=== PATIENT | female | born 1965 | race Asian ===

== ENCOUNTER 2021-04-22 11:14 | Emergency (ER) | payer MEDICAID ==
[2021-04-22 11:25] VITALS: BP 112/65
--- NOTE | 2021-04-22 11:46 | XRAY Report ---
PROCEDURE: Foot 3 View RT INDICATIONS: Trauma TECHNIQUE: 3 views of the foot were acquired. COMPARISON: None. FINDINGS: Bones: No fractures or dislocations. No suspicious bony lesions. Soft tissues: No tibiotalar joint effusion. Achilles tendon appears normal. IMPRESSION: No acute finding. Reviewed by: Nicolas Espinosa MD on 04/22/2021 11:44 AM PDT Approved by: Nicolas Espinosa MD on 04/22/2021 11:44 AM PDT Station ID: [id number]
--- NOTE | 2021-04-22 12:05 | ED Physician Documentation ---
History of Present Illness - Stated complaint Stated Complaint: RT FT INJ - Chief complaint Chief Complaint: Trauma Ext - History obtained from History obtained from: Patient - Additonal information Additional information: Pt comes to the ED c/o R foot pain after dropping a 10-lb weight on it 2 d/a. Mild swelling and bruising. Pt has been ambulating with a limp. No other complaints at this time. Review of Systems Ten Systems: 10 systems reviewed and negative Constitutional: reports: Reviewed and negative Eyes: reports: Reviewed and negative Ears: reports: Reviewed and negative Nose: reports: Reviewed and negative Throat: reports: Reviewed and negative Cardiac: reports: Reviewed and negative Respiratory: reports: Reviewed and negative GI: reports: Reviewed and negative : reports: Reviewed and negative Skin: reports: Reviewed and negative Musculoskeletal: reports: Extremity pain, Pain with weight bearing Neurologic: reports: Reviewed and negative Psychiatric: reports: Reviewed and negative Endocrine: reports: Reviewed and negative Immunocompromised: reports: Reviewed and negative PD PAST MEDICAL HISTORY - Present Medications Home Medications: Ambulatory Orders Medication Instructions Recorded Confirmed Omeprazole Magnesium [Prilosec] 20 mg ORAL DAILY 04/22/21 04/22/21 - Allergies Allergies/Adverse Reactions: Allergies Allergy/AdvReac Type Severity Reaction Status Date / Time No Known Drug Allergies Allergy Verified 04/22/21 11:23 PD ED PE NORMAL - Vitals Vital signs reviewed: Yes - General General: Alert and oriented X 3, No acute distress - HEENT HEENT: PERRL - Neck Neck: Supple, no meningeal sign - Respiratory Respiratory: No respiratory distress - Derm Derm: Warm and dry - Extremities Extremities: No deformity, Other (Mild edema and contusion of R foot dorsum. No deformity. ) - Neuro Neuro: Alert and oriented X 3 - Psych Psych: Normal mood, Normal affect Results - Vitals Vitals: Vital Signs - 24 hr 04/22/21 11:22 Temperature 36 C L Heart Rate 66 Respiratory 16 Rate Blood Pressure 112/65 O2 Saturation 98 Oxygen O2 Source Room air - Rads (name of study) R foot XR Radiology: Final report received, EMP read indepedently, See rad report (neg) PD MEDICAL DECISION MAKING - ED course Complexity details: reviewed results, re-evaluated patient, considered differential, d/w patient ED course: R foot XR negative. We have discussed the usual indications for return. Departure - Departure Disposition: 01 Home, Self Care Clinical Impression: Contusion, foot Qualifiers: Encounter type: initial encounter Laterality: right Qualified Code(s): S90.31XA - Contusion of right foot, initial encounter Condition: Stable Instructions: ED Contusion Foot Discharge Date/Time: 04/22/21 12:13
== END 2021-04-22 12:13 | disposition home or self-care (01) ==
LOC: ED 11:14
DX: S90.31XA Contusion of right foot, initial encounter (principal); W20.8XXA Other cause of strike by thrown, projected or falling object, initial encounter
CPT/HCPCS: 99282; 99283

== ENCOUNTER 2023-03-03 12:37 | Outpatient (CLI) | payer SELFPAY | END 2023-03-03 23:59 | disposition short-term general hospital (02) | LOC: EMS 12:37 | DX: R00.1 Bradycardia, unspecified (principal) | CPT/HCPCS: A0425; A0433 ==

== ENCOUNTER 2023-08-26 15:43 | Emergency (ER) | payer MEDICAID ==
--- NOTE | 2023-08-26 16:55 | XRAY Report ---
PROCEDURE: Shoulder 2+V RT INDICATIONS: R shoulder pain after fall TECHNIQUE: 3 views of the shoulder were acquired. COMPARISON: None. FINDINGS: Bones: No fractures or dislocations. No suspicious bony lesions. Visualized ribs appear intact. Soft tissues: No suspicious soft tissue calcifications. The visualized lungs are within normal limi ts. Partially visualized pacemaker leads. IMPRESSION: No acute bony abnormality. Reviewed by: Luis Young MD on 08/26/2023 4:54 PM PST Approved by: Luis Young MD on 08/26/2023 4:54 PM PST Station ID: [id number]
--- NOTE | 2023-08-26 17:15 | ED Physician Documentation ---
History of Present Illness - Stated complaint Stated Complaint: RT SHOULDER PX - Chief complaint Chief Complaint: General - History obtained from History obtained from: Patient, Family - Additonal information Additional information: The patient comes to the emergency department chief complaint of right shoulder pain and decreased appetite for the last couple of weeks. The patient states she has chronic right shoulder pain and has a "frozen shoulder" for which she is working with physical therapy. She has been on tramadol through her primary care physician for this, but then had a fall at her primary's office last week and states that she feels like she injured the shoulder further. She has had increased pain over the last week and has taken more for tramadol than usual. She states that she ran out last night and when they tried to call the doctor's office this morning to get an appointment, they were told there is no appointment till a week from tomorrow and to come to the ER. The patient states that she did not actually make the appointment for next week because she needed medication sooner. The patient denies any numbness or tingling in her right hand. She states that right now her pain is not too bad but she is worried it will be bad at night. She states that she is not exactly sure why she does not feel like eating or drinking. She states that those symptoms started 2 weeks ago with nausea and she was having dry heaves. She states that because of the nausea, she did not want to try putting anything in her mouth and ever since then, she just has found the idea of oral intake distasteful, even though her nausea has resolved. She states she is lost a lot of weight in the last couple of weeks because of it. No other complaints at this time. 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 Cardiovascular: Pacemaker HEENT: Cataracts - Present Medications Home Medications: Ambulatory Orders Medication Instructions Recorded Confirmed Omeprazole Magnesium [Prilosec] 20 mg ORAL DAILY 04/22/21 08/26/23 traMADol [Ultram] 50 mg PO Q6H PRN #10 tablet 08/26/23 - Allergies Allergies/Adverse Reactions: Allergies Allergy/AdvReac Type Severity Reaction Status Date / Time No Known Drug Allergies Allergy Verified 08/26/23 16:27 - Social History Does the pt smoke?: No Smoking Status: Never smoker Does the pt drink ETOH?: No Does the pt have substance abuse?: No PD ED PE NORMAL - Vitals Vital signs reviewed: Yes - General General: Alert and oriented X 3, No acute distress, Well developed/nourished, Other (Disheveled with poor hygiene.) - HEENT HEENT: Atraumatic, PERRL, EOMI, Moist mucous membranes - Neck Neck: Supple, no meningeal sign - Cardiac Cardiac: RRR, No murmur - Respiratory Respiratory: No respiratory distress, Clear bilaterally - Abdomen Abdomen: Soft, Non tender, Non distended - Derm Derm: Normal color, Warm and dry, No rash - Extremities Extremities: No deformity, Other (Limited range of motion right shoulder, with tenderness over the superior aspect of the shoulder including AC joint and glenoid rim.) - Neuro Neuro: Alert and oriented X 3, 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, Normal speech, Other (Grossly intact) - Psych Psych: Normal mood, Normal affect Results - Vitals Vitals: Vital Signs - 24 hr 08/26/23 08/26/23 16:21 18:27 Temperature 36.4 C L Heart Rate 103 H 90 Respiratory 16 16 Rate Blood Pressure 119/68 114/70 O2 Saturation 97 98 Oxygen O2 Source Room air - Labs Labs: Laboratory Tests 08/26/23 08/26/23 17:22 17:22 WBC 4.7 L RBC 4.60 Hgb 14.1 Hct 43.0 MCV 93.5 MCH 30.7 MCHC 32.8 RDW 13.5 Plt Count 291 MPV 10.1 Neut # (Auto) 2.9 Lymph # (Auto) 1.3 L [place] # (Auto) 0.5 Eos # (Auto) 0.1 Baso # (Auto) 0.0 Absolute Nucleated RBC 0.00 Nucleated RBC % 0.0 Sodium 141 Potassium 3.8 Chloride 101 Carbon Dioxide 31 Anion Gap 9.0 BUN 15 Creatinine 0.7 Estimated GFR (MDRD) 87 L Glucose 94 Calcium 10.4 H Total Bilirubin 0.8 AST 16 ALT 9 L Alkaline Phosphatase 71 Total Protein 6.7 Albumin 4.0 Globulin 2.7 Albumin/Globulin Ratio 1.5 Lipase 16 - Rads (name of study) Right shoulder x-ray series Relevant Findings:: Final report received, See rad report (Negative) PD Medical Decision Making - ED course Complexity details: reviewed results, re-evaluated patient, considered dif ferential, d/w patient, d/w family ED course: I discussed with the patient and her that even if an appointment is more distant than they prefer, they still need to make the next soonest appointment the primary care physician, as the emergency department is not a long-term solution to the patient's chronic issues. I have given the patient a dose of her tramadol here in the emergency department. She will be worked up with basic laboratory studies with regard to her lack of oral intake and general feeling of malaise over the last couple of weeks. Patient does not have any specific symptoms otherwise to indicate acute infectious illness. She is not vomiting and is not having any diarrhea, and there is no reason that she should not be able to hydrate on her own and I have discussed this with her. As such, she will be given oral fluids here in the emergency department and is encouraged to the same at home. Laboratory studies were unremarkable. Shoulder x-ray was normal. I have given the patient a small prescription for tramadol and have advised her to make the next available appointment with her primary doctor. We have discussed the usual indications for return. Departure - Departure Disposition: 01 Home, Self Care Clinical Impression: Decreased appetite Shoulder pain, right Qualifiers: Chronicity: unspecified Qualified Code(s): M25.511 - Pain in right shoulder Condition: Stable Instructions: Frozen Shoulder Prescriptions: traMADol [Ultram] 50 mg PO Q6H PRN #10 tablet PRN Reason: pain Forms: PCP List Discharge Date/Time: 08/26/23 18:30
[2023-08-26] MEDS: traMADol 50 MG TABLET PO STA (17:19)
[2023-08-26 17:26] LABS: BASOPHILS % (AUTO) 0.6 %; EOSINOPHILS # (AUTO) 0.1 10^3/uL (0.0-0.7); EOSINOPHILS % (AUTO) 1.5 %; HGB - HEMOGLOBIN 14.1 g/dL (12.0-16.0); LYMPHOCYTES # (AUTO) 1.3 10^3/uL (1.5-3.5); LYMPHOCYTES % (AUTO) 27.1 %; MEAN CORPUSCULAR HEMOGLOBIN 30.7 pg (27.0-31.0); MEAN CORPUSCULAR HGB CONC 32.8 g/dL (32.0-36.0); MEAN CORPUSCULAR VOLUME 93.5 fL (81.0-99.0); MEAN PLATELET VOLUME 10.1 fL (7.9-10.8); MONOCYTES # (AUTO) 0.5 10^3/uL (0.0-1.0); NEUTROPHILS # (AUTO) 2.9 10^3/uL (1.5-6.6); NEUTROPHILS % (AUTO) 60.8 %; PLT - PLATELET COUNT 291 10^3/uL (130-450); RED CELL DISTRIBUTION WIDTH 13.5 % (12.0-15.0); WHITE BLOOD COUNT 4.7 x10^3/uL (4.8-10.8)
[2023-08-26 17:38] LABS: ALBUMIN/GLOBULIN RATIO 1.5 (1.0-2.2); BILIRUBIN,TOTAL 0.8 mg/dL (0.2-1.0); CALCIUM 10.4 mg/dL (8.5-10.3); CREATININE 0.7 mg/dL (0.6-1.3); POTASSIUM 3.8 mmol/L (3.5-4.5); TOTAL PROTEIN 6.7 g/dL (6.4-8.9)
[2023-08-26 18:31] VITALS: BP 114/70; O2SAT 98
== END 2023-08-26 18:30 | disposition home or self-care (01) ==
LOC: ED 15:43
DX: M25.511 Pain in right shoulder (principal); R63.0 Anorexia; Z95.0 Presence of cardiac pacemaker
CPT/HCPCS: 36415; 73030; 80053; 83690; 85025; 99284; A9270

== ENCOUNTER 2023-09-19 02:53 | Outpatient (CLI) | payer MEDICAID | END 2023-09-19 23:59 | disposition critical access hospital (66) | LOC: EMS 02:53 | DX: R11.2 Nausea with vomiting, unspecified (principal); R10.32 Left lower quadrant pain; K59.00 Constipation, unspecified; R42 Dizziness and giddiness; R55 Syncope and collapse; R05.9 Cough, unspecified | CPT/HCPCS: A0425; A0429; A0999 ==

== ENCOUNTER 2023-09-19 03:30 | Emergency (ER) | payer MEDICAID ==
[2023-09-19 04:14] LABS: BASOPHILS % (AUTO) 0.5 %; EOSINOPHILS % (AUTO) 0.5 %; HCT - HEMATOCRIT 43.5 % (37.0-47.0); HGB - HEMOGLOBIN 14.2 g/dL (12.0-16.0); LYMPHOCYTES % (AUTO) 14.7 %; MEAN CORPUSCULAR HEMOGLOBIN 30.3 pg (27.0-31.0); MEAN CORPUSCULAR HGB CONC 32.6 g/dL (32.0-36.0); MEAN CORPUSCULAR VOLUME 92.8 fL (81.0-99.0); MEAN PLATELET VOLUME 9.7 fL (7.9-10.8); MONOCYTES # (AUTO) 0.6 10^3/uL (0.0-1.0); MONOCYTES % (AUTO) 8.3 %; NEUTROPHILS # (AUTO) 5.1 10^3/uL (1.5-6.6); NEUTROPHILS % (AUTO) 75.7 %; PLT - PLATELET COUNT 203 10^3/uL (130-450); RED BLOOD COUNT 4.69 10^6/uL (4.20-5.40); RED CELL DISTRIBUTION WIDTH 13.1 % (12.0-15.0); WHITE BLOOD COUNT 6.7 x10^3/uL (4.8-10.8)
[2023-09-19 04:34] LABS: ALBUMIN 3.7 g/dL (3.2-5.5); ALBUMIN/GLOBULIN RATIO 1.6 (1.0-2.2); BILIRUBIN,TOTAL 0.8 mg/dL (0.2-1.0); CALCIUM 9.6 mg/dL (8.5-10.3); POTASSIUM 3.6 mmol/L (3.5-4.5)
--- NOTE | 2023-09-19 04:52 | ED Physician Documentation ---
PD HPI NVD - Stated complaint Stated Complaint: N/V, DIZZY, ABD PAIN - Chief complaint Chief Complaint: Abd Pain - History obtained from History obtained from: Patient - Additonal information Additional information: Patient is a 57-year-old female presenting for evaluation of nausea, vomiting and diarrhea starting this morning. Patient states that she has had at least 6 episodes of loose stools as well as multiple episodes of vomiting. Denies blood in emesis or stools. She is only been able to keep down a small amount of juice throughout the day. Denies known sick contacts. Denies recent travel or antibiotic use. Denies fever, chest pain, shortness of air, abdominal pain. Reports feeling lightheaded with standing. Per EMS she was orthostatic and she was given 1 L of IV fluids and rounds along with 4 mg of IV Zofran.Denies dysuria. Review of Systems Constitutional: denies: Fever Cardiac: denies: Chest pain / pressure Respiratory: denies: Dyspnea GI: reports: Nausea, Vomiting, Diarrhea. 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 Cardiovascular: Pacemaker HEENT: Cataracts - Present Medications Home Medications: Ambulatory Orders Medication Instructions Recorded Confirmed Omeprazole Magnesium [Prilosec] 20 mg ORAL DAILY 04/22/21 09/19/23 traMADol [Ultram] 50 mg PO Q6H PRN #10 tablet 08/26/23 09/19/23 Ondansetron Odt [Zofran] 4 mg TL Q6H PRN #10 tablet 09/19/23 - Allergies Allergies/Adverse Reactions: Allergies Allergy/AdvReac Type Severity Reaction Status Date / Time No Known Drug Allergies Allergy Verified 08/26/23 16:27 - Social History Does the pt smoke?: No Smoking Status: Never smoker Does the pt drink ETOH?: No Does the pt have substance abuse?: No PD ED PE NORMAL - General General: Alert and oriented X 3, No acute distress, Well developed/nourished - HEENT HEENT: Atraumatic, Moist mucous membranes, Pharynx benign - Neck Neck: Supple, no meningeal sign - Cardiac Cardiac: RRR, Strong equal pulses - Respiratory Respiratory: No respiratory distress, Clear bilaterally - Abdomen Abdomen: Normal bowel sounds, Soft, Non tender, Non distended - Derm Derm: Warm and dry - Extremities Extremities: No calf tenderness / cord - Neuro Neuro: Alert and oriented X 3, No motor deficit, No sensory deficit, Normal speech Results - Vitals Vitals: Vital Signs - 24 hr 09/19/23 09/19/23 09/19/23 03:35 03:37 05:33 Temperature 36.9 C Heart Rate 101 H 96 88 Heart Rate [ Sitting] Heart Rate [ Standing] Heart Rate [ Supine] Respiratory 18 16 18 Rate Blood Pressure 107/73 101/74 114/76 Blood Pressure [Sitting] Blood Pressure [Standing] Blood Pressure [Supine] O2 Saturation 94 94 95 09/19/23 09/19/23 09/19/23 07:17 07:24 09:26 Temperature 36.8 C 36.7 C Heart Rate 96 97 Heart Rate [ 104 H Sitting] Heart Rate [ 126 H Standing] Heart Rate [ 100 Supine] Respiratory 16 16 Rate Blood Pressure 102/84 H 124/77 Blood Pressure 116/79 [Sitting] Blood Pressure 117/95 H [Standing] Blood Pressure 95/71 [Supine] O2 Saturation 100 96 Oxygen O2 Source Room air - EKG (time done) 0356 EKG releavant findings:: EKG personally interpreted by author of this note. Relevant findings are: Rate 100, Ventricular paced rhythm, no prior for comparison - Labs Labs: Laboratory Tests 09/19/23 09/19/23 04:04 04:04 WBC 6.7 RBC 4.69 Hgb 14.2 Hct 43.5 MCV 92.8 MCH 30.3 MCHC 32.6 RDW 13.1 Plt Count 203 MPV 9.7 Neut # (Auto) 5.1 Lymph # (Auto) 1.0 L [place] # (Auto) 0.6 Eos # (Auto) 0.0 Baso # (Auto) 0.0 Absolute Nucleated RBC 0.00 Nucleated RBC % 0.0 Sodium 143 Potassium 3.6 Chloride 105 Carbon Dioxide 29 Anion Gap 9.0 BUN 9 Creatinine 0.7 Estimated GFR (MDRD) 87 L Glucose 110 H Calcium 9.6 Total Bilirubin 0.8 AST 16 ALT 10 Alkaline Phosphatase 64 Total Protein 6.0 L Albumin 3.7 Globulin 2.3 Albumin/Globulin Ratio 1.6 Lipase 12 PD Medical Decision Making - ED course Complexity details: reviewed results, re-evaluated patient, d/w patient ED course: Pt is a 57 yo F with 1 day of N/V/D and recent ongoing nausea with poor PO intake. Pt orthostatic for EMS. Received 1 L of IV fluids in the field.CBC, chemistries reviewed and without significant findings. Having ongoing nausea, zofran x 2, compazine x 1 with additional 1 L of fluids. Abdominal exam is benign. No dizziness or CP. Pt signed out to Dr. Dueñas at shift change pending re evaluation after compazine and additional fluid bolus. Departure - Departure Disposition: Home, Self Care Clinical Impression: Nausea vomiting and diarrhea, Orthostatic lightheadedness, Volume depletion, gastrointestinal loss Condition: Stable Instructions: ED Diet Vomiting Diarrhea, ED Hypotension Orthostatic Prescriptions: Ondansetron Odt [Zofran] 4 mg TL Q6H PRN #10 tablet PRN Reason: Nausea / Vomiting Comments: You need close follow-up with your primary care provider regarding your ongoing nausea. In the meanwhile I have sent a prescription for antinausea medication To [facility] in [place]. Her labs are otherwise reassuring. If you continue to have diarrhea please have follow-up with your primary care If they can send off stool testing. If you develop any worsening symptoms please return to the emergency department. Please continue to try and stay hydrated. Forms: PCP List Discharge Date/Time: 09/19/23 09:40
[2023-09-19 05:01] LABS: CREATININE 0.7 mg/dL (0.6-1.3)
[2023-09-19] MEDS: ONDANSETRON 4 MG/2 ML VIAL IVP STA (05:30)
[2023-09-19] MEDS: PROCHLORPERAZINE 10 MG/2 ML VIAL IVP STA (06:04)
[2023-09-19] MEDS: SODIUM CHLORIDE 0.9% 1,000 ML IV STA (06:04)
[2023-09-19] MEDS: LACTATED RINGERS 1,000 ML IV STA (08:04)
--- NOTE | 2023-09-19 08:40 | ED Physician Documentation ---
ED Addendum - Addendum Addendum: 09/19/23 08:38 On recheck, the patient is sleepy but able to answer questions well. Presume tired from not sleeping well but also effect of the Compazine. She is able to answer questions appropriately and is oriented. She did take sips of water here in did not have any nausea or emesis. She was given antidiarrheal medication once. Orthostatic vital signs still showed a mild tachycardia with standing up and a drop of blood pressure to 98 systolic. We will give another liter of fluid and reassess. I did talk with her and her family members with her that her stomach will be raw and irritated from the throwing up for couple of days. Small bland foods initially and small amounts of fluid. A prescription for Zofran has been sent already to [facility]. We can try sending home and see how she does and to return if ineffective home therapy. Disposition: Patient discharged home in stable condition. Diagnoses: Nausea vomiting diarrhea 2. Volume depletion 3. Postural lightheadedness
[2023-09-19] MEDS: FAMOTIDINE 20 MG/2 ML VIAL IVP STA (08:53)
[2023-09-19] MEDS: DIPHENOX/ATROPINE 2.5/0.025 MG TABLET PO STA (08:53)
[2023-09-19 09:33] VITALS: BP 124/77; O2SAT 96
== END 2023-09-19 09:40 | disposition home or self-care (01) ==
LOC: EDUNIT# → ED 03:30
DX: E86.9 Volume depletion, unspecified (principal); R42 Dizziness and giddiness; R11.2 Nausea with vomiting, unspecified; R19.7 Diarrhea, unspecified; Z95.0 Presence of cardiac pacemaker
CPT/HCPCS: 36415; 80053; 83690; 85025; 93005; 96361; 96374; 96375; 99284; A9270; J7120

== ENCOUNTER 2023-10-03 12:15 | Outpatient (CLI) | payer MEDICAID | END 2023-10-03 23:59 | disposition critical access hospital (66) | LOC: EMS 12:15 | DX: R11.2 Nausea with vomiting, unspecified (principal); R53.1 Weakness; R10.33 Periumbilical pain | CPT/HCPCS: A0425; A0427; A0999 ==

== ENCOUNTER 2023-10-03 12:57 | Emergency (ER) | payer MEDICAID ==
--- NOTE | 2023-10-03 13:23 | ED Physician Documentation ---
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 At that time no imaging imaging had been complete and she had been very dehydrated and so she was given IV fluids, antinausea meds and had no significant abnormalities to her labs at that time. Today she presents back to the emergency department via EMS for persistent ongoing nausea vomiting diarrhea that she says has been going on over 3 months and today she feels like she is unable to handle the severity of it. She is hypotensive she is ill-appearing and says that she has had an unintentional weight loss of 10 pounds. She endorses and lower abdominal pain and discomfort. No vaginal discharge or vaginal bleeding. She has had no recent international travel. 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 Cardiovascular: Pacemaker HEENT: Cataracts - Present Medications Home Medications: Ambulatory Orders Medication Instructions Recorded Confirmed Omeprazole Magnesium [Prilosec] 20 mg ORAL DAILY 04/22/21 10/03/23 traMADol [Ultram] 50 mg PO Q6H PRN #10 tablet 08/26/23 10/03/23 Ondansetron Odt [Zofran] 4 mg TL Q6H PRN #10 tablet 09/19/23 10/03/23 ONDANSETRON ODT Prepack 2 [ZOFRAN 4 mg TL Q6H PRN #30 tablet 10/03/23 ODT Prepack 2] droNABinol [Marinol] 2.5 mg PO BIDAC #20 cap 10/03/23 - Allergies Allergies/Adverse Reactions: Allergies Allergy/AdvReac Type Severity Reaction Status Date / Time No Known Drug Allergies Allergy Verified 10/03/23 13:27 - Social History Does the pt smoke?: No Smoking Status: Never smoker Does the pt drink ETOH?: No Does the pt have substance abuse?: No PD ED PE NORMAL - Vitals Vital signs reviewed: Yes - General General: Alert and oriented X 3, Other (Ill-appearing appears slightly cachec tic) - HEENT HEENT: Atraumatic, PERRL, Other (Dry mucous membranes) - Neck Neck: Supple, no meningeal sign - Cardiac Cardiac: RRR, No murmur, No gallop - Respiratory Respiratory: No respiratory distress, Clear bilaterally - Abdomen Abdomen: Soft, Other (Hyperactive bowel sounds with tenderness to pelvic region with palpation) - Back Back: No CVA TTP - Derm Derm: Warm and dry, No rash, Other (Pale) Results - Vitals Vitals: Vital Signs - 24 hr 10/03/23 10/03/23 10/03/23 13:18 15:27 16:53 Temperature 36.7 C 36.7 C Heart Rate 94 96 96 Respiratory 18 16 16 Rate Blood Pressure 107/83 H 108/75 108/75 O2 Saturation 98 97 97 Oxygen O2 Source Room air - Labs Labs: Laboratory Tests 10/03/23 10/03/23 10/03/23 13:47 13:47 15:41 WBC 5.4 RBC 4.85 Hgb 14.8 Hct 45.4 MCV 93.6 MCH 30.5 MCHC 32.6 RDW 13.5 Plt Count 260 MPV 10.4 Neut # (Auto) 3.2 Lymph # (Auto) 1.5 [place] # (Auto) 0.6 Eos # (Auto) 0.1 Baso # (Auto) 0.0 Absolute Nucleated RBC 0.00 Nucleated RBC % 0.0 Sodium 142 Potassium 3.3 L Chloride 105 Carbon Dioxide 28 Anion Gap 9.0 BUN 14 Creatinine 0.6 Estimated GFR (MDRD) 103 Glucose 94 Calcium 9.9 Magnesium 1.8 Total Bilirubin 0.8 AST 18 ALT 16 Alkaline Phosphatase 49 Total Protein 6.1 L Albumin 3.8 Globulin 2.3 Albumin/Globulin Ratio 1.7 Lipase 19 Urine Color LIGHT YELLOW Urine Clarity HAZY Urine pH 5.5 Ur Specific [place] <=1.005 Urine Protein NEGATIVE Urine Glucose (UA) NEGATIVE Urine Ketones NEGATIVE Urine Occult Blood SMALL H Urine Nitrite NEGATIVE Urine Bilirubin NEGATIVE Urine Urobilinogen 1 (NORMAL) Ur Leukocyte Esterase NEGATIVE Urine RBC 6-10 H Urine WBC 6-10 H Ur Squamous Epith Cells MOD Squamous H Urine Bacteria Rare Ur Microscopic Review INDICATED Urine Culture Comments NOT INDICATED - Rads (name of study) CT abdomen pelvis with Relevant Findings:: Final report received, EMP independent interpretation of test, Other (No acute abnormalities visualized in abdomen or pelvis) PD Medical Decision Making - ED course ED course: 57-year-old female presents emergency department for generalized fatigue, nausea vomiting diarrhea. Patient said the last episode of diarrhea she had was sometime last evening and she has had no nausea or vomiting in the last 48 hours. CBC does not show any abnormalities, CMP shows very mild hypokalemia, K3.3 and slightly suppressed protein at 6.1 with an unremarkable urinalysis. CT scan also is unremarkable there is no abnormalities on CT abdomen pelvis without con. Patient says her main concern is that she has an appetite but she is just very hungry and she just does not feel like she wants to eat when she looks at the food. I informed the patient that she had no acute abnormalities or findings and she became quite tearful. I offered her the possibility that this could be an advancement in her myotonic dystrophy and she said that she did agree and that she has not seen a neurologist for some time about this. She says that she has a follow-up appointment with her primary care provider either October 11 or . I informed her that she needs to discuss these findings with her primary care provider have a referral to a possible steam oven operator or dietitian as well as GI and possibly neurology. Patient says that she agrees and will prioritize making this appointment. Departure - Departure Disposition: Home, Self Care Clinical Impression: Decrease in appetite, Food aversion, Myotonic dystrophy Nausea & vomiting Qualifiers: Vomiting type: unspecified Qualified Code(s): R11.2 - Nausea with vomiting, unspecified Instructions: ED Nausea Vomiting Prescriptions: droNABinol [Marinol] 2.5 mg PO BIDAC #20 cap ONDANSETRON ODT Prepack 2 [ZOFRAN ODT Prepack 2] 4 mg TL Q6H PRN #30 tablet PRN Reason: Nausea / Vomiting Comments: Thank you for trusting us with your care. We have completed a thorough investigation into what is causing your nausea vomiting and diarrhea and we are unable to find anything conclusive at this time. Your labs are quite reassuring your potassium was very mildly suppressed we have given you potassium here in the emergency department to help with this. I suspect that this could possibly related to an advancement in your myotonic dystrophy but I really want you to follow-up with your primary care provider for more specialist referrals and follow-up such as referral to GI, neurology or both as well as a dietitian to help find creative ways to increase caloric intake. I strongly encourage you to capitalize on the calories that you are taking and such as protein drinks, starchy foods like mashed potatoes, or smoothies. I have also sent a prescription of Zofran for your mild nausea to [facility] in [place] and I also started you on a medication to help with your appetite called Marinol. Keep in mind this can make you quite drowsy so take 1 dose and if you are noticing that is causing too much drowsiness and fatigue I would caution you before taking a second 1. You will take this once in the morning once in the evening to see if this helps with your appetite and your food aversion. Please come back to the emergency department for starting develop worsening weakness, nausea vomiting diarrhea that is not controlled at home with the medications I prescribed you or any other worsening concerning symptoms. Forms: PCP List Discharge Date/Time: 10/03/23 17:07
[2023-10-03 13:51] LABS: BASOPHILS % (AUTO) 0.7 %; EOSINOPHILS # (AUTO) 0.1 10^3/uL (0.0-0.7); EOSINOPHILS % (AUTO) 0.9 %; HCT - HEMATOCRIT 45.4 % (37.0-47.0); HGB - HEMOGLOBIN 14.8 g/dL (12.0-16.0); LYMPHOCYTES # (AUTO) 1.5 10^3/uL (1.5-3.5); LYMPHOCYTES % (AUTO) 26.8 %; MEAN CORPUSCULAR HEMOGLOBIN 30.5 pg (27.0-31.0); MEAN CORPUSCULAR HGB CONC 32.6 g/dL (32.0-36.0); MEAN CORPUSCULAR VOLUME 93.6 fL (81.0-99.0); MEAN PLATELET VOLUME 10.4 fL (7.9-10.8); MONOCYTES # (AUTO) 0.6 10^3/uL (0.0-1.0); MONOCYTES % (AUTO) 11.3 %; NEUTROPHILS # (AUTO) 3.2 10^3/uL (1.5-6.6); NEUTROPHILS % (AUTO) 59.9 %; PLT - PLATELET COUNT 260 10^3/uL (130-450); RED BLOOD COUNT 4.85 10^6/uL (4.20-5.40); RED CELL DISTRIBUTION WIDTH 13.5 % (12.0-15.0); WHITE BLOOD COUNT 5.4 x10^3/uL (4.8-10.8)
[2023-10-03 14:03] LABS: MAGNESIUM 1.8 mg/dL (1.7-2.3)
[2023-10-03] MEDS: SODIUM CHLORIDE 0.9% 1,000 ML IV ONE (14:08)
[2023-10-03 14:10] LABS: ALBUMIN 3.8 g/dL (3.2-5.5); ALBUMIN/GLOBULIN RATIO 1.7 (1.0-2.2); BILIRUBIN,TOTAL 0.8 mg/dL (0.2-1.0); CALCIUM 9.9 mg/dL (8.5-10.3); CREATININE 0.6 mg/dL (0.6-1.3); POTASSIUM 3.3 mmol/L (3.5-4.5); TOTAL PROTEIN 6.1 g/dL (6.4-8.9)
[2023-10-03] MEDS ORDERED: iohexoL-300 100 ML VIAL ONE (14:29)
[2023-10-03] MEDS: ONDANSETRON 4 MG/2 ML VIAL IVP STA (14:36)
[2023-10-03] MEDS: POTASSIUM CHLORIDE 20 MEQ/15 ML UDC PO STA (15:10)
--- NOTE | 2023-10-03 15:46 | CT Report ---
PROCEDURE: Abdomen/Pelvis W INDICATIONS: lower abdominal pain, N/V/D CONTRAST: 100ml omni 300 TECHNIQUE: After the administration of intravenous contrast, a CT scan of the abdomen and pelvis was performed. Images were recorded and evaluated at appropriate window settings. Reformats: coronal and sagittal. F or radiation dose reduction, the following was used: automated exposure control, adjustment of mA and /or kV according to patient size. COMPARISON: None. FINDINGS: Image quality: Diagnostic. Lower chest: Unremarkable. Liver: No solid mass. Gallbladder and biliary tree: No radiopaque stones or wall thickening. No biliary dilation. Spleen: No splenomegaly. Pancreas: No pancreatic ductal dilation. Adrenals: No adrenal nodule. Kidneys and ureters: No hydronephrosis. No renal cystic lesion which requires follow up. No solid mas s. Stomach, bowel and peritoneum: No bowel distension. No pathologic free fluid. Normal caliber appendix in the right lower quadrant Lymph nodes: No central or retroperitoneal adenopathy. Vessels: No infrarenal aortic aneurysm. PELVIS Reproductive organs: Unremarkable. Bladder: No abnormal wall thickening, accounting for underdistention. Pelvic lymph nodes: No pelvic adenopathy by size criteria. Bones: No acute or suspicious osseous abnormality. No compression fractures. Other: No significant ventral or inguinal hernia. IMPRESSION: No acute abdominal pelvic process. Reviewed by: Romina Isaacs MD on 10/03/2023 2:45 PM [email or web address] Approved by: Romina Isaacs MD on 10/03/2023 2:45 PM AKDT Station ID: [id number]
[2023-10-03 15:54] LABS: BILIRUBIN,URINE NEGATIVE (NEGATIVE); GLUCOSE, URINE (UA) NEGATIVE (NEGATIVE); KETONES,URINE (UA) NEGATIVE (NEGATIVE); LEUKOCYTE ESTERASE, URINE NEGATIVE (NEGATIVE); NITRITE,URINE NEGATIVE (NEGATIVE); OCCULT BLOOD,URINE SMALL (NEGATIVE); PH,URINE 5.5 PH (5.0-7.5); PROTEIN,URINE NEGATIVE (NEGATIVE); UROBILINOGEN,URINE 1 (NORMAL) E.U./dL (NORMAL)
[2023-10-03 16:05] LABS: CLARITY,URINE HAZY (CLEAR)
[2023-10-03 16:06] LABS: BACTERIA,URINE Rare /HPF (None Seen); SQUAMOUS EPITHELIAL CELL,UR MOD Squamous (<= Few)
[2023-10-03] MEDS ORDERED: droNABinol 2.5 MG CAPSULE PO STA (16:21)
[2023-10-03 16:23] VITALS: BP 108/75; O2SAT 97
== END 2023-10-03 17:07 | disposition home or self-care (01) ==
LOC: EDUNIT# → ED 12:57
DX: R11.2 Nausea with vomiting, unspecified (principal); R19.7 Diarrhea, unspecified; F50.82 Avoidant/restrictive food intake disorder; Z68.20 Body mass index [BMI] 20.0-20.9, adult; E87.6 Hypokalemia; G71.11 Myotonic muscular dystrophy
CPT/HCPCS: 36415; 74177; 80053; 81001; 83690; 83735; 85025; 96374; 99284; A9270; Q0167; Q9967; 81003; 87086; 87507

== ENCOUNTER 2023-10-16 18:05 | Outpatient (CLI) | payer MEDICAID | END 2023-10-16 23:59 | disposition EMS.NT | LOC: EMS 18:05 | DX: R11.0 Nausea (principal); R19.7 Diarrhea, unspecified ==

== ENCOUNTER 2023-10-20 17:28 | Outpatient (CLI) | payer MEDICAID | END 2023-10-20 23:59 | disposition EMS.NT | LOC: EMS 17:28 | DX: K59.00 Constipation, unspecified (principal); R10.30 Lower abdominal pain, unspecified ==

== ENCOUNTER 2023-10-20 18:35 | Emergency (ER) | payer MEDICAID ==
[2023-10-20 19:08] VITALS: O2SAT 95
--- NOTE | 2023-10-20 19:28 | ED Physician Documentation ---
PD HPI ABD PAIN - Stated complaint Stated Complaint: ABD PX/GI - Chief complaint Chief Complaint: Abd Pain - History obtained from History obtained from: Patient, Family - History of Present Illness Timing - onset: How many days ago (7) Timing - duration: Days (7) Timing - details: Abrupt onset, Still present Quality: Cramping, Fullness/distended, Pain Location: Periumbilical, Suprapubic Improved by: Laying still Worsened by: Eating, Moving, Position, Palpation Associated symptoms: Constipation Similar symptoms before: Has not had sx before Recently seen: Clinic, Emergency Dept - Additional information Additional information: Dori Damon presents to the emergency department today with some lower abdominal pain and a feeling of constipation. 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 She reports a 3-month history of weight loss and anorexia. She has been in to see us here in the emergency department in September and the issue of her appetite was addressed. CT scan of the abdomen pelvis was obtained at that time without specific finding.She was prescribed megestrol and this did not seem to help with her appetite. She has subsequently been in to see her primary care doctor, Dr. Townsend in [place]. She went in not feeling well and urinary tract infection was discovered. The patient indicates she has been having symptoms. She was placed on an antibiotic she is uncertain what antibiotic it was and she has been taking it 3 times per day. She has not had no change. She reports that she has been sleeping poorly she has no appetite she has a 20 pound weight loss and she initially tells me she does not feel depressed in any way does not have anything to be depressed about. When I questioned her further about specific things like going out to do things that you are considered fine she told me that she does not feel felt well enough to go see her son perform at a track meet. Review of Systems Constitutional: denies: Fever Eyes: denies: Decreased vision Ears: denies: Ear pain Nose: denies: Rhinorrhea / runny nose, Congestion Throat: denies: Sore throat Cardiac: denies: Chest pain / pressure, Palpitations Respiratory: denies: Dyspnea, Cough, Wheezing GI: reports: Abdominal Pain, Constipation. 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 Cardiovascular: Pacemaker HEENT: Cataracts - Present Medications Home Medications: Ambulatory Orders Medication Instructions Recorded Confirmed Omeprazole Magnesium [Prilosec] 20 mg ORAL DAILY 04/22/21 10/03/23 traMADol [Ultram] 50 mg PO Q6H PRN #10 tablet 08/26/23 10/03/23 Ondansetron Odt [Zofran] 4 mg TL Q6H PRN #10 tablet 09/19/23 10/03/23 ONDANSETRON ODT Prepack 2 [ZOFRAN 4 mg TL Q6H PRN #30 tablet 10/03/23 ODT Prepack 2] droNABinol [Marinol] 2.5 mg PO BIDAC #20 cap 10/03/23 Ciprofloxacin HCl [Cipro] 500 mg PO BID #14 tablet 10/20/23 - Allergies Allergies/Adverse Reactions: Allergies Allergy/AdvReac Type Severity Reaction Status Date / Time No Known Drug Allergies Allergy Verified 10/20/23 18:38 - Social History Does the pt smoke?: No Smoking Status: Never smoker Does the pt drink ETOH?: No Does the pt have substance abuse?: No - POLST Patient has POLST: No PD ED PE NORMAL - Vitals Vital signs reviewed: Yes (normal ) - General General: Alert and oriented X 3, No acute distress, Well developed/nourished - HEENT HEENT: Atraumatic, PERRL, EOMI, Other (dry mucous membranes ) - Neck Neck: Supple, no meningeal sign, No bony TTP - Cardiac Cardiac: RRR, No murmur - Respiratory Respiratory: No respiratory distress, Clear bilaterally - Abdomen Abdomen: Normal bowel sounds, Soft, Non distended, No organomegaly, Other (mild suprapubic tenderess. No garding rebound or referred tenderness. 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, No motor deficit, No sensory deficit, Normal speech Eye Opening: Spontaneous Motor: Obeys Commands Verbal: Oriented GCS Score: 15 - Psych Psych: Normal mood, Normal affect Results - Vitals Vitals: Vital Signs - 24 hr 10/20/23 10/20/23 10/20/23 18:38 19:03 23:46 Temperature 36.8 C 35.9 C L Heart Rate 100 85 84 Respiratory 16 20 20 Rate Blood Pressure 110/73 98/69 130/85 H O2 Saturation 100 95 95 Oxygen O2 Source Room air - Labs Labs: Laboratory Tests 10/20/23 10/20/23 10/20/23 20:00 20:00 20:30 WBC 4.2 L RBC 4.67 Hgb 14.1 Hct 44.0 MCV 94.2 MCH 30.2 MCHC 32.0 RDW 13.7 Plt Count 235 MPV 9.6 Neut # (Auto) 2.4 Lymph # (Auto) 1.4 L [place] # (Auto) 0.4 Eos # (Auto) 0.0 Baso # (Auto) 0.0 Absolute Nucleated RBC 0.00 Nucleated RBC % 0.0 Sodium 140 Potassium 4.2 Chloride 106 Carbon Dioxide 28 Anion Gap 6.0 BUN 8 Creatinine 0.6 Estimated GFR (MDRD) 103 Glucose 98 Calcium 10.3 Total Bilirubin 1.0 AST 16 ALT 11 Alkaline Phosphatase 45 Total Protein 5.8 L Albumin 3.8 Globulin 2.0 L Albumin/Globulin Ratio 1.9 Lipase 11 Urine Color YELLOW Urine Clarity CLEAR Urine pH 6.0 Ur Specific [place] 1.020 Urine Protein NEGATIVE Urine Glucose (UA) NEGATIVE Urine Ketones NEGATIVE Urine Occult Blood NEGATIVE Urine Nitrite NEGATIVE Urine Bilirubin NEGATIVE Urine Urobilinogen 0.2 (NORMAL) Ur Leukocyte Esterase MODERATE H Urine RBC 0-5 Urine WBC 11-25 H Ur Squamous Epith Cells FEW Squamous Urine Bacteria Few Urine Mucus Few Strands Ur Microscopic Review INDICATED Urine Culture Comments INDICATED - Rads (name of study) CT ab/pel with Relevant Findings:: Prelim report reviewed (Impression no acute abdominal pelvis process.), EMP independent interpretation of test PD Medical Decision Making - ED course Complexity details: reviewed old records, reviewed results, re-evaluated patient, considered differential, d/w patient, d/w family Reviewed Lab Results: We reviewed a complete blood count showing a white blood cell count depressed at 4.2 similar to priors her hemoglobin hematocrit and platelets were normal her indices were normal chemistry showed normal electrolytes normal kidney and liver function urinalysis showed moderate leukocyte Estrace 11-25 white blood cells per high-powered field a few bacteria it did make the grade for culture.These l aboratory studies are relatively benign and do not contribute to a specific diagnosis with the exception of the urinalysis which demonstrates evidence of urinary tract infection.The patient is symptomatic. ED course: 58-year-old Dori Marte presents to the emergency department with concerns of constipation. I evaluated the patient at the bedside I did not find her abdomen to be distended or specifically tender anywhere with the exception of the suprapubic area which is mildly tender. This was correlated with the positive urinalysis is likely cause of her tenderness.The patient's 20 pound weight loss was a significant concern and CT of the abdomen pelvis was obtained. The patient had complained of constipation and the CT scan demonstrated almost no stool throughout the entire colon after 7 days without a bowel movement. My interpretation of this finding was the patient is not eating. This is confirmed by history. I turned my attention to her history and when I queried symptoms of depression she did not feel that she was in any way depressed. But each of the vegetative symptoms were positive. She has poor sleep, lack of appetite and anhedonia. Her affect does not tell depression it seems normal. I have encouraged her to follow-up with her primary care doctor to consider treatment of depression as this may be what improves her appetite. I also considered the possibility of progression of her myotonic dystrophy and I am not versed in this entity and have referred her to her primary for referral to specialist. In the emergency department we did do symptomatic treatment she appeared significantly dehydrated she was administered intravenous saline she was given a gram of Rocephin intravenously and we will switch her antibiotic to Cipro.At the conclusion of treatment the patient felt improved and wanted to go home. Departure - Departure Disposition: 01 Home, Self Care Clinical Impression: Anorexia, Myotonic dystrophy, Dehydration UTI (urinary tract infection) Qualifiers: Urinary tract infection type: acute cystitis Hematuria presence: without hematuria Qualified Code(s): N30.00 - Acute cystitis without hematuria Depression Qualifiers: Depression Type: other depression Qualified Code(s): F32.89 - Other specified depressive episodes Condition: Stable Instructions: ED Dehydration, ED Depression, ED UTI Cystitis Female Follow-Up: Aylin Townsend MD [Primary Care Provider] - Prescriptions: Ciprofloxacin HCl [Cipro] 500 mg PO BID #14 tablet Comments: Dori, today we did not find any evidence of constipation on your CAT scan. It looks like the absence of stools related to absence of food products in the digestive tract. As we discussed this may be related to depression as you are having a problem with sleep, appetite and anhedonia or the lack of desire to do fun things. Talk to your primary care doctor about a trial of antidepressant. Alternatively the lack of appetite may be primarily related to your underlying myotonic dystrophy, and a follow-up with neurologist may be indicated. Today we found that despite the treatment for several days there still appears to be urinary tract infection. This likely means the organism in the urine is resistant to the antibiotic you are on and we are switching your antibiotic. Today we gave you a dose of Rocephin and we will change her antibiotic to Cipro. I have E scribed this to the [facility] in [place]. Forms: PCP List Discharge Date/Time: 10/20/23 23:46
[2023-10-20] MEDS ORDERED: iohexoL-300 100 ML VIAL ONE (20:06)
[2023-10-20 20:31] LABS: BASOPHILS % (AUTO) 0.7 %; EOSINOPHILS % (AUTO) 0.5 %; HGB - HEMOGLOBIN 14.1 g/dL (12.0-16.0); LYMPHOCYTES # (AUTO) 1.4 10^3/uL (1.5-3.5); LYMPHOCYTES % (AUTO) 33.8 %; MEAN CORPUSCULAR HEMOGLOBIN 30.2 pg (27.0-31.0); MEAN CORPUSCULAR VOLUME 94.2 fL (81.0-99.0); MEAN PLATELET VOLUME 9.6 fL (7.9-10.8); MONOCYTES # (AUTO) 0.4 10^3/uL (0.0-1.0); MONOCYTES % (AUTO) 9.2 %; NEUTROPHILS # (AUTO) 2.4 10^3/uL (1.5-6.6); NEUTROPHILS % (AUTO) 55.6 %; PLT - PLATELET COUNT 235 10^3/uL (130-450); RED BLOOD COUNT 4.67 10^6/uL (4.20-5.40); RED CELL DISTRIBUTION WIDTH 13.7 % (12.0-15.0); WHITE BLOOD COUNT 4.2 x10^3/uL (4.8-10.8)
[2023-10-20 20:51] LABS: ALBUMIN 3.8 g/dL (3.2-5.5); ALBUMIN/GLOBULIN RATIO 1.9 (1.0-2.2); CALCIUM 10.3 mg/dL (8.5-10.3); CREATININE 0.6 mg/dL (0.6-1.3); POTASSIUM 4.2 mmol/L (3.5-4.5); TOTAL PROTEIN 5.8 g/dL (6.4-8.9)
[2023-10-20 21:14] LABS: BILIRUBIN,URINE NEGATIVE (NEGATIVE); GLUCOSE, URINE (UA) NEGATIVE (NEGATIVE); KETONES,URINE (UA) NEGATIVE (NEGATIVE); LEUKOCYTE ESTERASE, URINE MODERATE (NEGATIVE); NITRITE,URINE NEGATIVE (NEGATIVE); OCCULT BLOOD,URINE NEGATIVE (NEGATIVE); PROTEIN,URINE NEGATIVE (NEGATIVE); UROBILINOGEN,URINE 0.2 (NORMAL) E.U./dL (NORMAL)
[2023-10-20 21:16] LABS: CLARITY,URINE CLEAR (CLEAR)
[2023-10-20] MEDS: iohexoL-300 100 ML VIAL IVP ONE (21:29)
[2023-10-20 21:30] LABS: BACTERIA,URINE Few /HPF (None Seen); MUCUS,URINE Few Strands; RBC,URINE 0-5 /HPF (0-5); SQUAMOUS EPITHELIAL CELL,UR FEW Squamous (<= Few)
[2023-10-20] MEDS ORDERED: cefTRIAXone 1 GM VIAL ONE (21:57)
[2023-10-20] MEDS: cefTRIAXone 1 GM in SODIUM CHLORIDE 0.9% MINIBAG 100 ML IV STA (22:03)
[2023-10-20] MEDS: KETOROLAC 30 MG/ML VIAL IVP STA (22:04)
[2023-10-20] MEDS: SODIUM CHLORIDE 0.9% 1,000 ML IV STA (22:04)
--- NOTE | 2023-10-20 22:59 | CT Report ---
PROCEDURE: Abdomen/Pelvis W INDICATIONS: abdominal pain constipation 7d weight loss CONTRAST: Omni 300, 100mls TECHNIQUE: After the administration of intravenous contrast, a CT scan of the abdomen and pelvis was performed. Images were recorded and evaluated at appropriate window settings. Reformats: coronal and sagittal. F or radiation dose reduction, the following was used: automated exposure control, adjustment of mA and /or kV according to patient size. COMPARISON: CT abdomen pelvis 10/03/2023. FINDINGS: Image quality: Diagnostic. Lower chest: Unremarkable. Liver: No solid mass. Gallbladder and biliary tree: No radiopaque stones or wall thickening. No biliary dilation. Spleen: No splenomegaly. Pancreas: No pancreatic ductal dilation. Adrenals: No adrenal nodule. Kidneys and ureters: No hydronephrosis. No renal cystic lesion which requires follow up. No solid mas s. Stomach, bowel and peritoneum: No bowel distension. No pathologic free fluid. No small bowel obstruct ion. Normal caliber appendix in the right lower quadrant. Lymph nodes: No central or retroperitoneal adenopathy. Vessels: No infrarenal aortic aneurysm. PELVIS Reproductive organs: Unremarkable. Bladder: No abnormal wall thickening, accounting for underdistention. Pelvic lymph nodes: No pelvic adenopathy by size criteria. Bones: No aggressive osseous abnormality. Other: No significant ventral or inguinal hernia. IMPRESSION: No acute abdominopelvic process. Reviewed by: Romina Isaacs MD, PhD on 10/20/2023 10:58 PM PDT Approved by: Romina Isaacs MD, PhD on 10/20/2023 10:58 PM PDT Station ID: [id number]
[2023-10-20 23:52] VITALS: BP 130/85
== END 2023-10-20 23:46 | disposition home or self-care (01) ==
LOC: ED 18:35
DX: N30.00 Acute cystitis without hematuria (principal); G71.11 Myotonic muscular dystrophy; R63.0 Anorexia; E86.0 Dehydration; F32.89 Other specified depressive episodes; Z95.0 Presence of cardiac pacemaker
CPT/HCPCS: 36415; 74177; 80053; 81001; 83690; 85025; 87086; 96365; 96375; 99284; Q9967; 81003

== ENCOUNTER 2023-12-04 16:44 | Outpatient (CLI) | payer MEDICAID | END 2023-12-04 23:59 | disposition short-term general hospital (02) | LOC: EMS 16:44 | DX: R10.13 Epigastric pain (principal); Z93.1 Gastrostomy status | CPT/HCPCS: A0425; A0427; A0999 ==

== ENCOUNTER 2023-12-13 17:47 | Emergency (ER) | payer MEDICAID ==
--- NOTE | 2023-12-13 18:12 | ED Physician Documentation ---
PD HPI FEMALE - Stated complaint Stated Complaint: - Chief complaint Chief Complaint: Abd Pain - History obtained from History obtained from: Patient, Family - Additional information Additional information: 2 days of burning dysuria and frequency. She also has a raw on her backside from diarrhea. Recent feeding tube placement for neuromuscular weakness. No fevers. 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 Cardiovascular: Pacemaker HEENT: Cataracts - Present Medications Home Medications: Ambulatory Orders Medication Instructions Recorded Confirmed Omeprazole Magnesium [Prilosec] 20 mg ORAL DAILY 04/22/21 10/03/23 traMADol [Ultram] 50 mg PO Q6H PRN #10 tablet 08/26/23 10/03/23 Ondansetron Odt [Zofran] 4 mg TL Q6H PRN #10 tablet 09/19/23 10/03/23 ONDANSETRON ODT Prepack 2 [ZOFRAN 4 mg TL Q6H PRN #30 tablet 10/03/23 ODT Prepack 2] droNABinol [Marinol] 2.5 mg PO BIDAC #20 cap 10/03/23 Ciprofloxacin HCl [Cipro] 500 mg PO BID #14 tablet 10/20/23 Nitrofurantoin [Macrobid] 1 cap PO BID #10 cap 12/13/23 - Allergies Allergies/Adverse Reactions: Allergies Allergy/AdvReac Type Severity Reaction Status Date / Time No Known Drug Allergies Allergy Verified 12/13/23 18:23 - Social History Does the pt smoke?: No Smoking Status: Never smoker Does the pt drink ETOH?: No Does the pt have substance abuse?: No - POLST Patient has POLST: No PD ED PE NORMAL - Vitals Vital signs reviewed: Yes - General General: Alert and oriented X 3 - Abdomen Abdomen: Soft, Non tender - Back Back: No CVA TTP Results - Vitals Vitals: Vital Signs - 24 hr 12/13/23 12/13/23 17:49 19:35 Temperature 35.7 C L Heart Rate 106 H 98 Respiratory 18 15 Rate Blood Pressure 115/59 L 101/60 O2 Saturation 95 100 Oxygen O2 Source Room air - Labs Labs: Laboratory Tests 12/13/23 12/13/23 12/13/23 18:08 18:08 18:09 WBC 6.3 RBC 4.55 Hgb 13.9 Hct 42.0 MCV 92.3 MCH 30.5 MCHC 33.1 RDW 15.9 H Plt Count 522 H MPV 9.3 Neut # (Auto) 4.6 Lymph # (Auto) 1.1 L [place] # (Auto) 0.6 Eos # (Auto) 0.0 Baso # (Auto) 0.0 Absolute Nucleated RBC 0.00 Nucleated RBC % 0.0 Sodium 141 Potassium 4.0 Chloride 101 Carbon Dioxide 32 Anion Gap 8.0 BUN 15 Creatinine 0.7 Estimated GFR (MDRD) 86 L Glucose 130 H Calcium 10.5 H Total Bilirubin 0.7 AST 29 ALT 20 Alkaline Phosphatase 80 Total Protein 6.8 Albumin 4.0 Globulin 2.8 Albumin/Globulin Ratio 1.4 Lipase 42 Urine Color LIGHT YELLOW Urine Clarity HAZY Urine pH 6.5 Ur Specific [place] 1.015 Urine Protein NEGATIVE Urine Glucose (UA) NEGATIVE Urine Ketones NEGATIVE Urine Occult Blood NEGATIVE Urine Nitrite NEGATIVE Urine Bilirubin NEGATIVE Urine Urobilinogen 0.2 (NORMAL) Ur Leukocyte Esterase SMALL H Urine RBC 0-5 Urine WBC 6-10 H Ur Squamous Epith Cells MOD Squamous H Amorphous Sediment Few Urine Bacteria Many H Ur Microscopic Review INDICATED Urine Culture Comments NOT INDICATED PD Medical Decision Making - ED course ED course: She presents with symptoms of cystitis. She does have bacteriuria but no white count and unremarkable CBC and CMP only notable for mild hyperglycemia and hypercalcemia. She was administered Macrobid. Counseled on wound care for her right backside from diarrhea. Departure - Departure Disposition: 01 Home, Self Care Clinical Impression: Cystitis Condition: Good Record reviewed to determine appropriate education?: Yes Instructions: ED UTI Cystitis Female Prescriptions: Nitrofurantoin [Macrobid] 1 cap PO BID #10 cap Comments: I sent your prescription electronically to [email or web address]. You can take it and crushed it and mix it with some water via the G-tube and then make sure to flush the G-tube with water afterwards. Return if worsening. For the raw area, when you go to the pharmacy tomorrow get some barrier cream such as Desitin and apply it liberally to that area. Forms: PCP List Discharge Date/Time: 12/13/23 19:36
[2023-12-13 18:13] LABS: BASOPHILS % (AUTO) 0.6 %; EOSINOPHILS % (AUTO) 0.6 %; HGB - HEMOGLOBIN 13.9 g/dL (12.0-16.0); LYMPHOCYTES # (AUTO) 1.1 10^3/uL (1.5-3.5); LYMPHOCYTES % (AUTO) 16.6 %; MEAN CORPUSCULAR HEMOGLOBIN 30.5 pg (27.0-31.0); MEAN CORPUSCULAR HGB CONC 33.1 g/dL (32.0-36.0); MEAN CORPUSCULAR VOLUME 92.3 fL (81.0-99.0); MEAN PLATELET VOLUME 9.3 fL (7.9-10.8); MONOCYTES # (AUTO) 0.6 10^3/uL (0.0-1.0); MONOCYTES % (AUTO) 9.2 %; NEUTROPHILS # (AUTO) 4.6 10^3/uL (1.5-6.6); NEUTROPHILS % (AUTO) 72.8 %; PLT - PLATELET COUNT 522 10^3/uL (130-450); RED BLOOD COUNT 4.55 10^6/uL (4.20-5.40); RED CELL DISTRIBUTION WIDTH 15.9 % (12.0-15.0); WHITE BLOOD COUNT 6.3 x10^3/uL (4.8-10.8)
[2023-12-13 18:29] LABS: BILIRUBIN,URINE NEGATIVE (NEGATIVE); GLUCOSE, URINE (UA) NEGATIVE (NEGATIVE); KETONES,URINE (UA) NEGATIVE (NEGATIVE); LEUKOCYTE ESTERASE, URINE SMALL (NEGATIVE); NITRITE,URINE NEGATIVE (NEGATIVE); OCCULT BLOOD,URINE NEGATIVE (NEGATIVE); PH,URINE 6.5 PH (5.0-7.5); PROTEIN,URINE NEGATIVE (NEGATIVE); UROBILINOGEN,URINE 0.2 (NORMAL) E.U./dL (NORMAL)
[2023-12-13 18:32] LABS: CLARITY,URINE HAZY (CLEAR)
[2023-12-13 18:39] LABS: ALBUMIN/GLOBULIN RATIO 1.4 (1.0-2.2); BILIRUBIN,TOTAL 0.7 mg/dL (0.2-1.0); CALCIUM 10.5 mg/dL (8.5-10.3); CREATININE 0.7 mg/dL (0.6-1.3); TOTAL PROTEIN 6.8 g/dL (6.4-8.9)
[2023-12-13 18:43] LABS: AMORPHOUS SEDIMENT,UR Few /LPF; BACTERIA,URINE Many /HPF (None Seen); RBC,URINE 0-5 /HPF (0-5); SQUAMOUS EPITHELIAL CELL,UR MOD Squamous (<= Few)
[2023-12-13] MEDS: NITROFURANTOIN MACRO 100 MG CAPSULE PO STA (19:33)
[2023-12-13 19:37] VITALS: BP 101/60; O2SAT 100
== END 2023-12-13 19:36 | disposition home or self-care (01) ==
LOC: ED 17:47
DX: N30.90 Cystitis, unspecified without hematuria (principal); L98.9 Disorder of the skin and subcutaneous tissue, unspecified; Z93.1 Gastrostomy status
CPT/HCPCS: 36415; 80053; 81001; 83690; 85025; 99283; 99284; A9270; 81003; 87086

== ENCOUNTER 2023-12-19 20:01 | Outpatient (CLI) | payer MEDICAID | END 2023-12-19 23:59 | disposition critical access hospital (66) | LOC: EMS 20:01 | DX: R10.817 Generalized abdominal tenderness (principal); I95.9 Hypotension, unspecified; R09.02 Hypoxemia; Z93.1 Gastrostomy status | CPT/HCPCS: A0425; A0427; A0999 ==

== ENCOUNTER 2023-12-19 20:38 | Emergency (ER) | payer MEDICAID ==
[2023-12-19 20:55] LABS: BASOPHILS % (AUTO) 0.8 %; EOSINOPHILS # (AUTO) 0.1 10^3/uL (0.0-0.7); HGB - HEMOGLOBIN 12.6 g/dL (12.0-16.0); LYMPHOCYTES # (AUTO) 1.3 10^3/uL (1.5-3.5); LYMPHOCYTES % (AUTO) 25.6 %; MEAN CORPUSCULAR HEMOGLOBIN 30.2 pg (27.0-31.0); MEAN CORPUSCULAR HGB CONC 32.3 g/dL (32.0-36.0); MEAN CORPUSCULAR VOLUME 93.5 fL (81.0-99.0); MEAN PLATELET VOLUME 9.7 fL (7.9-10.8); MONOCYTES # (AUTO) 0.5 10^3/uL (0.0-1.0); MONOCYTES % (AUTO) 10.1 %; NEUTROPHILS # (AUTO) 3.2 10^3/uL (1.5-6.6); NEUTROPHILS % (AUTO) 62.1 %; PLT - PLATELET COUNT 308 10^3/uL (130-450); RED BLOOD COUNT 4.17 10^6/uL (4.20-5.40); RED CELL DISTRIBUTION WIDTH 15.3 % (12.0-15.0); WHITE BLOOD COUNT 5.2 x10^3/uL (4.8-10.8)
[2023-12-19] MEDS: SODIUM CHLORIDE 0.9% 1,000 ML IV STA (21:05)
[2023-12-19 21:08] LABS: ALBUMIN 3.7 g/dL (3.2-5.5); ALBUMIN/GLOBULIN RATIO 1.5 (1.0-2.2); BILIRUBIN,TOTAL 0.7 mg/dL (0.2-1.0); CALCIUM 9.6 mg/dL (8.5-10.3); CREATININE 0.5 mg/dL (0.6-1.3); POTASSIUM 3.9 mmol/L (3.5-4.5); TOTAL PROTEIN 6.1 g/dL (6.4-8.9)
[2023-12-19] MEDS: HYDROmorphone 1 MG/ML CARPUJECT IVP STA (21:09)
[2023-12-19] MEDS ORDERED: iohexoL-300 100 ML VIAL ONE (21:11)
[2023-12-19] MEDS: iohexoL-300 100 ML VIAL IVP ONE (21:54)
[2023-12-19 22:04] LABS: BILIRUBIN,URINE NEGATIVE (NEGATIVE); GLUCOSE, URINE (UA) NEGATIVE (NEGATIVE); KETONES,URINE (UA) NEGATIVE (NEGATIVE); LEUKOCYTE ESTERASE, URINE NEGATIVE (NEGATIVE); NITRITE,URINE NEGATIVE (NEGATIVE); OCCULT BLOOD,URINE NEGATIVE (NEGATIVE); PROTEIN,URINE NEGATIVE (NEGATIVE); UROBILINOGEN,URINE 0.2 (NORMAL) E.U./dL (NORMAL)
[2023-12-19 22:07] LABS: CLARITY,URINE CLEAR (CLEAR)
--- NOTE | 2023-12-19 22:29 | CT Report ---
PROCEDURE: Abdomen/Pelvis W INDICATIONS: LLQ/LUQ pain CONTRAST: 100 ML OMNI 300 TECHNIQUE: After the administration of intravenous contrast, a CT scan of the abdomen and pelvis was performed. Images were recorded and evaluated at appropriate window settings. Reformats: coronal and sagittal. F or radiation dose reduction, the following was used: automated exposure control, adjustment of mA and /or kV according to patient size. COMPARISON: 10/20/2023 FINDINGS: Image quality: Diagnostic. Lower chest: Linear atelectasis versus scarring within the bilateral lower lobes, lingula and right m iddle lobe. Partially visualized pacemaker wires. Heart is normal in size. Liver: No solid mass. Gallbladder: No radiopaque stones or wall thickening. Biliary tree: No intrahepatic or extrahepatic dilation, accounting for age. Spleen: No splenomegaly. Pancreas: No pancreatic ductal dilation. Small cystic focus within the pancreatic body measuring 8 mm (), stable compared to prior. Adrenals: No adrenal nodule. Kidneys and ureters: No hydronephrosis. No renal cystic lesion which requires follow up. No solid mas s. Stomach, bowel and peritoneum: Gastrostomy tube in place. Small metallic density medial to the gastro stomy tube, may represent part of the instrument used to place the gastrostomy tube. No gastric or sm all bowel dilation. No abnormal wall thickening. No pathologic free fluid. Normal appendix. Lymph nodes: No central or retroperitoneal adenopathy. Vessels: No infrarenal aortic aneurysm. Patent portal vein. PELVIS Reproductive organs: Possible small uterine fibroid. Bladder: No abnormal wall thickening, accounting for underdistention. Pelvic lymph nodes: No pelvic adenopathy by size criteria. Bones: No aggressive osseous abnormality. Degenerative changes of the spine. Decreased osseous minera lization. Stable mild compression deformity of the superior endplate of L5. Other: No significant ventral or inguinal hernia. IMPRESSION: Status post gastrostomy tube placement. Medial to the gastrostomy tube is a small linear metallic den sity. This likely represents part of the instrument used during the procedure to secure the stomach t o the anterior abdominal wall. Normally this releases after the procedure and passes through the najma l. Currently, this appears to be securing the gastric wall to the anterior abdominal wall. Unclear if this is a source of patient's pain. This may eventually lead to erosion through the gastric wall or a source for gastric volvulus in the future once the gastrostomy tube has been removed. Small cystic focus within the pancreatic body is stable compared to prior. Consider nonurgent pancrea tic protocol MRI for further evaluation. Reviewed by: Luis Young MD on 12/19/2023 10:27 PM PDT Approved by: Luis Young MD on 12/19/2023 10:27 PM PDT Station ID: [id number]
--- NOTE | 2023-12-19 22:50 | ED Physician Documentation ---
History of Present Illness - Stated complaint Stated Complaint: ABD PX - Chief complaint Chief Complaint: Abd Pain - History obtained from History obtained from: Patient - Additonal information Additional information: 58yF with pmh myoclonic dystrophy and feeding difficulties s/p recent feeding tube placement, also with uti 1 week ago on cipro p/w LLQ/LUQ pain tonight worse with deep breathing and pressing on the area. denies fever, dysuria, hematuria or increased frequency. 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 Cardiovascular: Pacemaker HEENT: Cataracts - Present Medications Home Medications: Ambulatory Orders Medication Instructions Recorded Confirmed Omeprazole Magnesium [Prilosec] 20 mg ORAL DAILY 04/22/21 10/03/23 traMADol [Ultram] 50 mg PO Q6H PRN #10 tablet 08/26/23 10/03/23 Ondansetron Odt [Zofran] 4 mg TL Q6H PRN #10 tablet 09/19/23 10/03/23 droNABinol [Marinol] 2.5 mg PO BIDAC #20 cap 10/03/23 Nitrofurantoin [Macrobid] 1 cap PO BID #10 cap 12/13/23 - Allergies Allergies/Adverse Reactions: Allergies Allergy/AdvReac Type Severity Reaction Status Date / Time No Known Drug Allergies Allergy Verified 12/13/23 18:23 - Social History Does the pt smoke?: No Smoking Status: Never smoker Does the pt drink ETOH?: No Does the pt have substance abuse?: No - POLST Patient has POLST: No PD ED PE NORMAL - Vitals Vital signs reviewed: Yes - General General: Alert and oriented X 3, No acute distress, Well developed/nourished - HEENT HEENT: Atraumatic, PERRL, EOMI, Moist mucous membranes - Neck Neck: Supple, no meningeal sign - Cardiac Cardiac: RRR - Respiratory Respiratory: No respiratory distress, Clear bilaterally - Abdomen Abdomen: Non tender, Non distended, Other (g tube in place. diffuse discomfort to palpation) - Back Back: No CVA TTP - Derm Derm: Normal color, Warm and dry - Neuro Neuro: No motor deficit, No sensory deficit Results - Vitals Vitals: Vital Signs - 24 hr 12/19/23 12/19/23 12/19/23 20:50 20:53 21:15 Temperature 36.5 C Heart Rate 84 84 Respiratory 16 20 Rate Blood Pressure 99/68 99/68 97/64 O2 Saturation 96 96 12/19/23 23:22 Temperature Heart Rate 100 Respiratory 16 Rate Blood Pressure 106/77 O2 Saturation 93 Oxygen O2 Source Room air - Labs Labs: Laboratory Tests 12/19/23 12/19/23 12/19/23 20:51 20:51 21:51 WBC 5.2 RBC 4.17 L Hgb 12.6 Hct 39.0 MCV 93.5 MCH 30.2 MCHC 32.3 RDW 15.3 H Plt Count 308 MPV 9.7 Neut # (Auto) 3.2 Lymph # (Auto) 1.3 L [place] # (Auto) 0.5 Eos # (Auto) 0.1 Baso # (Auto) 0.0 Absolute Nucleated RBC 0.00 Nucleated RBC % 0.0 Sodium 139 Potassium 3.9 Chloride 104 Carbon Dioxide 29 Anion Gap 6.0 BUN 13 Creatinine 0.5 L Estimated GFR (MDRD) 127 Glucose 106 H Calcium 9.6 Total Bilirubin 0.7 AST 26 ALT 22 Alkaline Phosphatase 65 Total Protein 6.1 L Albumin 3.7 Globulin 2.4 Albumin/Globulin Ratio 1.5 Lipase 47 Urine Color YELLOW Urine Clarity CLEAR Urine pH 6.0 Ur Specific [place] <=1.005 Urine Protein NEGATIVE Urine Glucose (UA) NEGATIVE Urine Ketones NEGATIVE Urine Occult Blood NEGATIVE Urine Nitrite NEGATIVE Urine Bilirubin NEGATIVE Urine Urobilinogen 0.2 (NORMAL) Ur Leukocyte Esterase NEGATIVE Ur Microscopic Review NOT INDICATED Urine Culture Comments NOT INDICATED PD Medical Decision Making - ED course ED course: 58-year-old woman presented with abdominal pain in LUQ/L lower quadrant, resolving s/p symptomatic care with IV dilaudid, with benign lab work and CT except for a metallic object near the G-tube that is likely related to procedure. Patient can follow-up routinely with her [facility] surgeon that placed the G-tube. It does not appear to be related to her pain at this time. She can take tylenol and oxycodone at home prn. Return precautions given. Plan to follow-up with PCP as well. Departure - Departure Disposition: Home, Self Care Clinical Impression: Abdominal pain Condition: Stable Instructions: Abdominal Pain Comments: You were seen in the emergency department for abdominal pain. Your labwork was normal and ct showed only a small piece of metal near the g tube that is likely part of the procedure process. You should see your doctor at [facility] who placed the tube for follow up. Please follow-up with your primary care provider as well and return to the emergency department if you have any new or worsening symptoms or other concerns. Forms: PCP List Discharge Date/Time: 12/19/23 23:23
[2023-12-19 23:25] VITALS: BP 106/77; O2SAT 93
== END 2023-12-19 23:23 | disposition home or self-care (01) ==
LOC: EDUNIT# → ED 20:38
DX: R10.12 Left upper quadrant pain (principal); R10.32 Left lower quadrant pain; Z79.899 Other long term (current) drug therapy; Z95.0 Presence of cardiac pacemaker
CPT/HCPCS: 36415; 74177; 80053; 81003; 83690; 85025; 96374; 99283; 99284; J1170; Q9967; 81001; 87086

== ENCOUNTER 2023-12-22 20:56 | Emergency (ER) | payer MEDICAID ==
[2023-12-22 21:44] LABS: BILIRUBIN,URINE NEGATIVE (NEGATIVE); GLUCOSE, URINE (UA) NEGATIVE (NEGATIVE); KETONES,URINE (UA) NEGATIVE (NEGATIVE); LEUKOCYTE ESTERASE, URINE NEGATIVE (NEGATIVE); NITRITE,URINE NEGATIVE (NEGATIVE); OCCULT BLOOD,URINE NEGATIVE (NEGATIVE); PH,URINE 7.5 PH (5.0-7.5); PROTEIN,URINE NEGATIVE (NEGATIVE); UROBILINOGEN,URINE 1 (NORMAL) E.U./dL (NORMAL)
[2023-12-22 21:45] LABS: CLARITY,URINE CLEAR (CLEAR)
[2023-12-22] MEDS: HYDROmorphone 1 MG/ML CARPUJECT IM STA (22:27)
[2023-12-22] MEDS: KETOROLAC 30 MG/ML VIAL IM STA (22:27)
--- NOTE | 2023-12-22 23:39 | ED Physician Documentation ---
History of Present Illness - Stated complaint Stated Complaint: BACK PX - Chief complaint Chief Complaint: Back Pain - History obtained from History obtained from: Patient - Additonal information Additional information: The patient comes to the emergency department chief complaint of low back pain and lower abdominal pain. She just finished antibiotics for UTI couple of days ago and is concerned that perhaps the UTI is coming back. She denies dysuria. No fevers or chills. No nausea or vomiting. The patient has chronic pain and states that this is hurting above that. No other complaints at this time. PD PAST MEDICAL HISTORY - Past Medical History Past Medical History: Yes Cardiovascular: Other Neuro: Other GI: Other STOCK CUTTER: None Other Past Medical History: UTI. feeding tube. 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 Cardiovascular: Pacemaker HEENT: Cataracts - Present Medications Home Medications: Ambulatory Orders Medication Instructions Recorded Confirmed Omeprazole Magnesium [Prilosec] 20 mg ORAL DAILY 04/22/21 10/03/23 traMADol [Ultram] 50 mg PO Q6H PRN #10 tablet 08/26/23 10/03/23 Ondansetron Odt [Zofran] 4 mg TL Q6H PRN #10 tablet 09/19/23 10/03/23 droNABinol [Marinol] 2.5 mg PO BIDAC #20 cap 10/03/23 Nitrofurantoin [Macrobid] 1 cap PO BID #10 cap 12/13/23 HYDROcod/ACETAM 5/325 [[place] 5/325] 1 - 2 tablet PO Q6H PRN #6 tablet 12/22/23 - Allergies Allergies/Adverse Reactions: Allergies Allergy/AdvReac Type Severity Reaction Status Date / Time No Known Drug Allergies Allergy Verified 12/22/23 21:19 - Social History Does the pt smoke?: No Smoking Status: Never smoker Does the pt drink ETOH?: No Does the pt have substance abuse?: No - Immunizations Immunizations are current?: Yes - POLST Patient has POLST: No PD ED PE NORMAL - Vitals Vital signs reviewed: Yes - General General: No acute distress, Well developed/nourished, Other (Alert, grossly oriented) - HEENT HEENT: Atraumatic, EOMI, Moist mucous membranes - Neck Neck: Supple, no meningeal sign - Cardiac Cardiac: RRR, No murmur - Respiratory Respiratory: No respiratory distress, Clear bilaterally - Abdomen Abdomen: Soft, Non tender, Non distended - Back Back: No CVA TTP, No spinal TTP - Derm Derm: Normal color, Warm and dry, No rash - Extremities Extremities: No deformity - Neuro Neuro: Other (Alert, grossly intact) - Psych Psych: Normal mood, Normal affect Results - Vitals Vitals: Vital Signs - 24 hr 12/22/23 12/22/23 12/22/23 21:16 23:19 23:47 Temperature 36.6 C Heart Rate 100 67 89 Respiratory 19 15 18 Rate Blood Pressure 111/72 103/65 104/64 O2 Saturation 97 99 96 12/22/23 23:51 Temperature Heart Rate 68 Respiratory 18 Rate Blood Pressure 104/64 O2 Saturation 99 Oxygen O2 Source Room air - Labs Labs: Laboratory Tests 12/22/23 21:39 Urine Color YELLOW Urine Clarity CLEAR Urine pH 7.5 Ur Specific [place] 1.010 Urine Protein NEGATIVE Urine Glucose (UA) NEGATIVE Urine Ketones NEGATIVE Urine Occult Blood NEGATIVE Urine Nitrite NEGATIVE Urine Bilirubin NEGATIVE Urine Urobilinogen 1 (NORMAL) Ur Leukocyte Esterase NEGATIVE Ur Microscopic Review NOT INDICATED Urine Culture Comments NOT INDICATED PD Medical Decision Making - ED course Complexity details: reviewed results, re-evaluated patient, considered differential, d/w patient ED course: The patient had a fairly benign abdominal and back exam and had not had any trauma. Her urinalysis was negative. I treated her symptomatically here and discussed with her that I do not find evidence of a more serious condition which would indicate the need for emergent imaging here in the ED. I have given her a small prescription for symptomatic management at home and we have discussed the need for follow-up with her doctor. We have also discussed the usual indications for return to the ED. Departure - Departure Disposition: Home, Self Care Clinical Impression: Back pain Qualifiers: Back pain location: low back pain Chronicity: unspecified Back pain laterality: bilateral Sciatica presence: without sciatica Qualified Code(s): M54.50 - Low back pain, unspecified Condition: Stable Instructions: ED Neck Back Pain General Prescriptions: HYDROcod/ACETAM 5/325 [[place] 5/325] 1 - 2 tablet PO Q6H PRN #6 tablet PRN Reason: Pain Comments: Your urinalysis looks good. There is no evidence of return of urinary tract infection. It is not clear why you are having back pain but there is no evidence of an emergent condition. You been treated for your pain tonight. A prescription for a few pain pills has been electronically transmitted to the [facility] in [place]. Please pick this up but use them sparingly, otherwise you will end up with constipation which will probably make your symptoms worse. Please follow-up with your primary doctor for further concerns. Discharge Date/Time: 12/22/23 23:51
[2023-12-22 23:47] VITALS: O2SAT 99
[2023-12-22 23:56] VITALS: BP 104/64
== END 2023-12-22 23:51 | disposition home or self-care (01) ==
LOC: ED 20:56
DX: M54.50 Low back pain, unspecified (principal); R10.30 Lower abdominal pain, unspecified; Z87.440 Personal history of urinary (tract) infections
CPT/HCPCS: 81003; 96372; 99283; J1170; 81001; 87086

== ENCOUNTER 2024-03-24 01:39 | Outpatient (CLI) | payer MEDICAID | END 2024-03-24 23:01 | disposition critical access hospital (66) | LOC: EMS 01:39 | DX: M25.512 Pain in left shoulder (principal); W06.XXXA Fall from bed, initial encounter; Y92.003 Bedroom of unspecified non-institutional (private) residence as the place of occurrence of the external cause; R42 Dizziness and giddiness | CPT/HCPCS: A0425; A0427; A0999 ==

== ENCOUNTER 2024-03-24 02:19 | Emergency (ER) | payer MEDICAID ==
[2024-03-24 02:33] VITALS: BP 91/61; O2SAT 92
--- NOTE | 2024-03-24 02:51 | ED Physician Documentation ---
History of Present Illness - Stated complaint Stated Complaint: DIZZY, GLF, LT SHOULDER PAIN - Chief complaint Chief Complaint: Trauma Ext - History obtained from History obtained from: Patient - Additonal information Additional information: 58-year-old woman presents status post fall onto left shoulder, with severe pain prompting her to call EMS. She received fentanyl en route and Toradol with imp rovement. Denies numbness or weakness in her extremity but cannot move the arm without severe pain. 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 Cardiovascular: Pacemaker HEENT: Cataracts - Present Medications Home Medications: Ambulatory Orders Medication Instructions Recorded Confirmed Omeprazole Magnesium [Prilosec] 20 mg ORAL DAILY 04/22/21 10/03/23 traMADol [Ultram] 50 mg PO Q6H PRN #10 tablet 08/26/23 10/03/23 Ondansetron Odt [Zofran] 4 mg TL Q6H PRN #10 tablet 09/19/23 10/03/23 droNABinol [Marinol] 2.5 mg PO BIDAC #20 cap 10/03/23 Nitrofurantoin [Macrobid] 1 cap PO BID #10 cap 12/13/23 HYDROcod/ACETAM 5/325 [[place] 5/325] 1 - 2 tablet PO Q6H PRN #6 tablet 12/22/23 Oxycodone HCl/Acetaminophen 1 each PO Q4H PRN #10 tablet 03/24/24 [Percocet 10-325 mg Tablet] - Allergies Allergies/Adverse Reactions: Allergies Allergy/AdvReac Type Severity Reaction Status Date / Time No Known Drug Allergies Allergy Verified 12/22/23 21:19 - Social History Does the pt smoke?: No Smoking Status: Never smoker Does the pt drink ETOH?: No Does the pt have substance abuse?: No - Immunizations Immunizations are current?: Yes - POLST Patient has POLST: No PD ED PE NORMAL - Vitals Vital signs reviewed: Yes - General General: Alert and oriented X 3, No acute distress - HEENT HEENT: Atraumatic, PERRL, EOMI - Neck Neck: Supple, no meningeal sign - Cardiac Cardiac: RRR - Respiratory Respiratory: No respiratory distress, Clear bilaterally - Extremities Extremities: Other (Left shoulder tender tender to palpation and with decreased range of motion and palpable deformity. left upper extremity 2+ radial pulse, sensation and movement) Results - Vitals Vitals: Vital Signs - 24 hr 03/24/24 03/24/24 02:23 02:26 Temperature 36.3 C L Heart Rate 45 L 89 Respiratory 18 Rate Blood Pressure 91/61 O2 Saturation 92 Oxygen O2 Source Room air PD Medical Decision Making - ED course ED course: 58yF presents to the ED s/p fall onto L shoulder with resulting L proximal humerus fracture at surgical neck. d/w Dr. [place] who reviewed the images and states this looks well reduced and recommends to sling her and have her follow up with ortho clinic in one week. return precautions given. Departure - Departure Disposition: 01 Home, Self Care Clinical Impression: Proximal humerus fracture Condition: Stable Instructions: Humerus Fx Prescriptions: Oxycodone HCl/Acetaminophen [Percocet 10-325 mg Tablet] 1 each PO Q4H PRN #10 tablet PRN Reason: Pain Comments: You were seen in the emergency department for humeral neck fracture (break of the humerus). Prescription was sent to [facility] in [place]. Please follow-up with your primary care provider and return to the emergency department if you have any new or worsening symptoms or other concerns. Forms: PCP List
[2024-03-24] MEDS: oxyCODONE 5 MG TABLET PO STA (03:23)
--- NOTE | 2024-03-24 08:35 | XRAY Report ---
PROCEDURE: Shoulder 2+V LT INDICATIONS: fall TECHNIQUE: 3 views of the shoulder were acquired. COMPARISON: None. FINDINGS: Bones: Comminuted fracture of the humeral head and neck, mildly displaced. There is a greater tubero sity fragment. No suspicious bony lesions. Visualized ribs appear intact. Soft tissues: No suspicious soft tissue calcifications. Left basilar atelectasis. IMPRESSION: Comminuted fracture of the humeral head and neck. Findings are concordant with preliminary interpretation provided by [facility]. Reviewed by: Oc Fraire MD on 03/24/2024 8:33 AM PDT Approved by: Oc Fraire MD on 03/24/2024 8:33 AM PDT Station ID: [id number]
== END 2024-03-24 03:45 | disposition home or self-care (01) ==
LOC: EDUNIT# → ED 02:19
DX: S42.292A Other displaced fracture of upper end of left humerus, initial encounter for closed fracture (principal); W18.30XA Fall on same level, unspecified, initial encounter; Z79.899 Other long term (current) drug therapy
CPT/HCPCS: 73030; 99283; 99284; A9270

== ENCOUNTER 2024-10-21 00:04 | Inpatient (IN) ==
--- OUTSIDE RECORDS SUMMARY | 2024-10-21 01:05 | EXTERNAL MEDICAL SUMMARY RPT | Continuity of Care Document ---
Author Organization [facility] Address [address] [place] [address] [address] [place] [address] Phone Problems date description facility 2024-08-08 14:42 Encounter for attention to wade rostomy [facility] 2024-08-11 08:23 Gastrostomy malfunction [facility] Social History date description facility
[2024-10-21] MEDS: DEXAMETHASONE 10 MG/ML VIAL IVP STA (01:21)
[2024-10-21] MEDS: SODIUM CHLORIDE 0.9% 1,000 ML IV STA (01:21)
[2024-10-21 01:48] LABS: BASOPHILS % (AUTO) 0.4 %; EOSINOPHILS % (AUTO) 0.2 %; HCT - HEMATOCRIT 43.9 % (37.0-47.0); HGB - HEMOGLOBIN 14.6 g/dL (12.0-16.0); LYMPHOCYTES # (AUTO) 0.8 10^3/uL (1.5-3.5); LYMPHOCYTES % (AUTO) 14.9 %; MEAN CORPUSCULAR HEMOGLOBIN 32.4 pg (27.0-31.0); MEAN CORPUSCULAR HGB CONC 33.3 g/dL (32.0-36.0); MEAN CORPUSCULAR VOLUME 97.3 fL (81.0-99.0); MEAN PLATELET VOLUME 10.6 fL (7.9-10.8); MONOCYTES # (AUTO) 0.2 10^3/uL (0.0-1.0); MONOCYTES % (AUTO) 3.4 %; NEUTROPHILS # (AUTO) 4.2 10^3/uL (1.5-6.6); NEUTROPHILS % (AUTO) 80.9 %; PLT - PLATELET COUNT 201 10^3/uL (130-450); RED BLOOD COUNT 4.51 10^6/uL (4.20-5.40); RED CELL DISTRIBUTION WIDTH 12.4 % (12.0-15.0); WHITE BLOOD COUNT 5.2 x10^3/uL (4.8-10.8)
--- NOTE | 2024-10-21 01:48 | XRAY Report ---
PROCEDURE: XR Chest 1V INDICATIONS: chest pain TECHNIQUE: One view of the chest was acquired. COMPARISON: None. FINDINGS: Surgical changes and devices: Dual-lead left pacer. Lungs and pleura: Bilateral perihilar interstitial thickening and patchy infrahilar opacities. Low l joseluis volumes. Probable small left pleural effusion. No pneumothorax. Mediastinum: Heart size is not well seen due to diaphragm elevation. Bones and chest wall: No suspicious bony lesions. Overlying soft tissues appear unremarkable. IMPRESSION: Interstitial thickening and infrahilar alveolar opacities is nonspecific and may relate to atypical i nfection or interstitial edema. Reviewed by: Emperatriz Crawley MD on 10/21/2024 1:47 AM PDT Approved by: Emperatriz Crawley MD on 10/21/2024 1:47 AM PDT Station ID: [id number]
--- NOTE | 2024-10-21 02:13 | ED Physician Documentation ---
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 She has not been febrile. En-route to the hospital she was treated with Solu-Medrol and IV DuoNeb treatment without much improvement she is hypoxic on room air. She has had symptoms for about 3 days. Symptoms are worsening. She is coughing up phlegm. She is not able to get the phlegm out very well. [place] Coma Scale Assess Eye opening: Spontaneous Verbal response: Oriented Motor response: Obeys Commands Total score: 15 Review of Systems The patient denies fever denies nausea or vomiting she denies today any chest pain abdominal pain diarrhea or constipation. She has had cough productive of sputum and shortness of breath. Meds/Allgy Home Medications Ambulatory Orders Medication Instructions Recorded Confirmed omeprazole magnesium 10 mg oral 20 mg ORAL DAILY 04/22/21 10/21/24 suspension,delayed release (Prilosec) tramadol 50 mg tablet 50 mg PO Q6H PRN pain #10 tabs 08/26/23 10/21/24 ondansetron 4 mg disintegrating 4 mg translingual Q6H PRN Nausea / 09/19/23 10/21/24 tablet Vomiting #10 tabs dronabinol 2.5 mg capsule 2.5 mg PO BIDAC #20 caps 10/03/23 10/21/24 nitrofurantoin 1 cap PO BID #10 caps 12/13/23 10/21/24 monohydrate/macrocrystals 100 mg capsule hydrocodone 5 mg-acetaminophen 325 1 - 2 tab PO Q6H PRN Pain #6 tabs 12/22/23 10/21/24 mg tablet oxycodone-acetaminophen 10 mg-325 1 ea PO Q4H PRN Pain #10 tabs 03/24/24 10/21/24 mg tablet (Percocet) oxycodone-acetaminophen 5 mg-325 1 tab PO Q8H PRN pain #7 tabs 04/29/24 10/21/24 mg tablet Allergies Allergies Allergy/AdvReac Type Severity Reaction Status Date / Time No Known Drug Allergies Allergy Verified 08/03/24 18:43 PFSH Active Problems All Active Problems (Updated 10/21/24 @ 05:10 by Poncoh Torrez MD) Respiratory arrest (Acute) Respiratory failure (Acute) Pneumonia (Acute) Medical History Medical History (Updated 10/21/24 @ 05:10 by Poncho Torrez MD) History of pacemaker Surgical History Surgical History (Updated 08/03/24 @ 19:06 by Mary Sadler, RN, BSN) Hx of section Social History Social History Smoking Status: Never smoker Relationship: Do you feel safe in your home environment?: Yes Suffered physical, verbal, emotional, or financial abuse?: No History of Abuse: No Are you sexually active?: No POLST Patient has POLST: No Exam Exam Vital Signs: Vital Signs x48h Temp Pulse Resp BP Pulse Ox O2 Flow Rate 10/21/24 08:21 85 22 115/72 96 2 10/21/24 08:10 2 10/21/24 08:00 93 24 110/59 L 94 10/21/24 06:40 89 22 90/55 L 99 10/21/24 06:10 94 2 10/21/24 04:45 36.9 C 97 93/47 L 3 L 10/21/24 03:08 87 20 109/53 L 4 L 10/21/24 02:43 2 10/21/24 02:33 98 24 4 10/21/24 01:51 86 22 97/71 97 2 59-year-old female with a gaunt appearing face is wearing nasal cannula oxygen chills alert and cooperative she is difficult to understand because of her neuromuscular condition but her answers are consistently correct and well thought out. She requires patients to understand what she is saying. HENMT head/scalp atraumatic, hearing grossly normal bilaterally and TMs normal bilaterally The patient has significant saliva and she continually coughs. She has a weak wet sounding cough Eyes PERRL and EOMs intact bilaterally Neck/C-Spine visual inspection normal and trachea midline Respiratory The patient has fair air movement on the right the left is with decreased air movement and rhonchi throughout. Cardiovascular normal heart rate noted, regular rhythm noted and no murmur Gastrointestinal There is a feeding tube in the left upper quadrant the abdomen is nontender. Genitourinary no CVA tenderness Back/Pelvis spine normal to inspection Extremities normal to inspection Neurology client customer manager II-XII intact and speech abnormality noted (garbled) (But appropriate content) Psychiatry mental status grossly normal, oriented x3, thought process normal, cooperative, affect normal, psychomotor activity normal and memory normal Skin skin color normal and no rash Results Vitals Vitals: Vital Signs - 24 hr 10/21/24 00:11 10/21/24 01:51 10/21/24 02:33 Temperature 36.2 C L Temperature Source Temporal Artery Scan Pulse Rate 90 86 98 Respiratory Rate 24 22 24 Blood Pressure 163/64 H 97/71 O2 Saturation 94 97 Oxygen Delivery Method O2 Source Nasal cannula Nasal cannula Nasal cannula Oxygen Flow Rate If not protocol: Oxygen Flow, liters/minute 4 2 4 Fraction of Inspired Oxygen (FIO2) Pain Intensity 0 10/21/24 02:42 10/21/24 02:43 10/21/24 03:08 Temperature Temperature Source Pulse Rate 87 Respiratory Rate 20 Blood Pressure 109/53 L O2 Saturation 4 L Oxygen Delivery Method Nasal Cannula Nasal Cannula O2 Source Nasal cannula Oxygen Flow Rate 3 If not protocol: Oxygen Flow, liters/minute 2 Fraction of Inspired Oxygen (FIO2) Pain Intensity 10/21/24 04:45 10/21/24 05:49 10/21/24 06:10 Temperature 36.9 C Temperature Source Tympanic Pulse Rate 97 94 Respiratory Rate Blood Pressure 93/47 L O2 Saturation 3 L Oxygen Delivery Method Bi-pap O2 Source Nasal cannula Oxygen Flow Rate If not protocol: Oxygen Flow, liters/minute 2 Fraction of Inspired Oxygen (FIO2) 25 Pain Intensity 10/21/24 06:40 10/21/24 08:00 10/21/24 08:10 Temperature Temperature Source Pulse Rate 89 93 Respiratory Rate 22 24 Blood Pressure 90/55 L 110/59 L O2 Saturation 99 94 Oxygen Delivery Method O2 Source BIPAP BIPAP Oxygen Flow Rate If not protocol: Oxygen Flow, liters/minute 2 Fraction of Inspired Oxygen (FIO2) Pain Intensity 10/21/24 08:21 Temperature Temperature Source Pulse Rate 85 Respiratory Rate 22 Blood Pressure 115/72 O2 Saturation 96 Oxygen Delivery Method O2 Source Nasal cannula Oxygen Flow Rate If not protocol: Oxygen Flow, liters/minute 2 Fraction of Inspired Oxygen (FIO2) Pain Intensity Oxygen O2 Source Nasal cannula Oxygen Flow Rate 3 EKG (time done) 0030: EKG releavant findings:: EKG personally interpreted by author of this note. Relevant findings are: Rate: Rate (enter#) (84) Rhythm: Paced Compare to prior EKG: Changed from prior EKG (SPT 3.2.24 rate is slower) Computer interpretation: Agree with computer Labs Labs: Laboratory Tests 10/21/24 10/21/24 10/21/24 01:36 02:00 02:06 WBC 5.2 RBC 4.51 Hgb 14.6 Hct 43.9 MCV 97.3 MCH 32.4 H MCHC 33.3 RDW 12.4 Plt Count 201 MPV 10.6 Neut # (Auto) 4.2 Lymph # (Auto) 0.8 L [place] # (Auto) 0.2 Eos # (Auto) 0.0 Baso # (Auto) 0.0 Absolute Nucleated RBC 0.00 Nucleated RBC % 0.0 Bld Gas Analysis Time Sample Site ABG pH ABG pCO2 ABG pO2 ABG HCO3 ABG Total CO2 ABG O2 Saturation ABG Base Excess Yayo Test O2 Delivery Device O2 Liters/Min Sodium 142 Potassium 4.1 Chloride 103 Carbon Dioxide 31 Anion Gap 8.0 BUN 28 H Creatinine 0.6 Estimated GFR (MDRD) 103 Glucose 121 H Lactic Acid 1.3 Calcium 8.9 Total Bilirubin 0.4 AST 58 H ALT 88 H Alkaline Phosphatase 157 H Total Protein 6.0 L Albumin 3.6 Globulin 2.4 Albumin/Globulin Ratio 1.5 Lipase 15 Urine Color Urine Clarity Urine pH Ur Specific Foley Urine Protein Urine Glucose (UA) Urine Ketones Urine Occult Blood Urine Nitrite Urine Bilirubin Urine Urobilinogen Ur Leukocyte Esterase Ur Microscopic Review Urine Culture Comments Nasal Adenovirus (PCR) NOT DETECTED Nasal B. parapertussis DNA (PCR) NOT DETECTED Nasal Coronavir 229E PCR NOT DETECTED Nasal Coronavir HKU1 PCR DETECTED A Nasal Coronavir NL63 PCR NOT DETECTED Nasal Coronavir OC43 PCR NOT DETECTED Nasal Enterovir/Rhinovir PCR NOT DETECTED Nasal Influenza B PCR NOT DETECTED Nasal Influenza A PCR NOT DETECTED Nasal Parainfluen 1 PCR NOT DETECTED Nasal Parainfluen 2 PCR NOT DETECTED Nasal Parainfluen 3 PCR NOT DETECTED Nasal Parainfluen 4 PCR NOT DETECTED Nasal RSV (PCR) NOT DETECTED Nasal B.pertussis DNA PCR NOT DETECTED Nasal C.pneumoniae (PCR) NOT DETECTED Oscar Human Metapneumo PCR NOT DETECTED Nasal M.pneumoniae (PCR) NOT DETECTED Nasal SARS-CoV-2 (PCR) NOT DETECTED 10/21/24 10/21/24 03:36 04:30 WBC RBC Hgb Hct MCV MCH MCHC RDW Plt Count MPV Neut # (Auto) Lymph # (Auto) [place] # (Auto) Eos # (Auto) Baso # (Auto) Absolute Nucleated RBC Nucleated RBC % Bld Gas Analysis Time 0434 Sample Site RIGHT RADIAL ABG pH 7.35 ABG pCO2 59 H ABG pO2 101 ABG HCO3 32.8 H ABG Total CO2 34.6 H ABG O2 Saturation 99 H ABG Base Excess 7.0 H Yayo Test POSITIVE O2 Delivery Device NASAL CANNULA O2 Liters/Min 4.00 Sodium Potassium Chloride Carbon Dioxide Anion Gap BUN Creatinine Estimated GFR (MDRD) Glucose Lactic Acid Calcium Total Bilirubin AST ALT Alkaline Phosphatase Total Protein Albumin Globulin Albumin/Globulin Ratio Lipase Urine Color YELLOW Urine Clarity CLEAR Urine pH 6.0 Ur Specific [place] 1.015 Urine Protein NEGATIVE Urine Glucose (UA) NEGATIVE Urine Ketones NEGATIVE Urine Occult Blood NEGATIVE Urine Nitrite NEGATIVE Urine Bilirubin NEGATIVE Urine Urobilinogen 0.2 (NORMAL) Ur Leukocyte Esterase NEGATIVE Ur Microscopic Review NOT INDICATED Urine Culture Comments NOT INDICATED Nasal Adenovirus (PCR) Nasal B. parapertussis DNA (PCR) Nasal Coronavir 229E PCR Nasal Coronavir HKU1 PCR Nasal Coronavir NL63 PCR Nasal Coronavir OC43 PCR Nasal Enterovir/Rhinovir PCR Nasal Influenza B PCR Nasal Influenza A PCR Nasal Parainfluen 1 PCR Nasal Parainfluen 2 PCR Nasal Parainfluen 3 PCR Nasal Parainfluen 4 PCR Nasal RSV (PCR) Nasal B.pertussis DNA PCR Nasal C.pneumoniae (PCR) Oscar Human Metapneumo PCR Nasal M.pneumoniae (PCR) Nasal SARS-CoV-2 (PCR) Rads (name of study) chest: Relevant Findings:: Final report received and EMP independent interpretation of test (Left retrocardiac infiltrate) Interpretation: Impression: Interstitial thickening and infra hilar alveolar opacities is nonspecific and may relate to atypical infection or interstitial edema. PD Medical Decision Making ED course Complexity details: reviewed old records, reviewed results, re-evaluated patient, considered differential and d/w patient Reviewed Lab Results: We reviewed a complete blood count showing a normal white blood cell count of 5.2 normal hemoglobin hematocrit and platelets chemistries show normal electrolytes BUN is elevated at 28 creatinine normal at 0.6 lactate is normal at 1.3 liver functions are elevated with an AST of 58 and ALT of 88 and alkaline phosphatase is 157. The patient has never had elevation in her liver functions previously today her nasal smear is positive for coronavirus H KU 1 I interpret these laboratory results to indicate the patient has infection with a specific coronavirus and she now has elevated liver enzymes as well. The patient is presenting primarily with respiratory illness likely related to the coronavirus. We evaluated an arterial blood gas showing a pH of 7.349 and elevated CO2 of 59 pO2 of 101 and this looks like she is been chronically compensated for hypercapnia. This patient will likely require BiPAP 6 to 8 hours/day. Social Determinants of Health: This patient is a [facility] resident her is currently being treated for ALL. She has a son at home also with myoclonic dystrophy. 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 She is not able to cough up her secretions and she has become hypoxic. She does not have an overwhelming infiltrate. I asked our respiratory therapist to evaluate the patient and she has recommended that we transfer the patient to a facility with a CoughAssist device as she believes the patient would benefit from this. This is not something we have available at [facility]. I consulted the Customer Data Technician on- call at [facility]. He requested arterial blood gas to be done to assess the degree of hypercapnia. 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 He recommends consultation with pulmonology but this does not need to be done urgently. He endorses admission to our critical access hospital here. Consulted coal briquette machine operator [id number]. Senior Systems Architect deferred to day hospitalist as he was uncertain about the patients condition. Consults Consults: Consulted (name) (Dr. New Customer Data Technician on-call at [facility]. ) Discharge Plan Discharge Patient Disposition: [facility] DC/Xfer Condition: Fair Clinical Impression: Respiratory arrest Pneumonia Qualifiers: Pneumonia type: due to unspecified organism Laterality: left Lung location: lower lobe of lung Qualified Code(s): J18.9 - Pneumonia, unspecified organism Respiratory failure Qualifiers: Chronicity: acute on chronic Respiratory failure complication: hypoxia and hypercapnia Qualified Code(s): J96.21 - Acute and chronic respiratory failure with hypoxia
[2024-10-21] MEDS: IPRATROPIUM/ALBUTEROL 3 ML NEB INH STA (02:33)
[2024-10-21 02:41] LABS: ALBUMIN 3.6 g/dL (3.2-5.5); ALBUMIN/GLOBULIN RATIO 1.5 (1.0-2.2); BILIRUBIN,TOTAL 0.4 mg/dL (0.2-1.0); CALCIUM 8.9 mg/dL (8.5-10.3); CREATININE 0.6 mg/dL (0.6-1.3); POTASSIUM 4.1 mmol/L (3.5-4.5)
[2024-10-21 03:04] LABS: B. PARAPERTUSSIS- RESP PCR PAN NOT DETECTED; B. PERTUSSIS- RESP PCR PANEL NOT DETECTED; C. PNEUMONIAE- RESP PCR PANEL NOT DETECTED; CORONAVIRUS 229E-RESP PCR NOT DETECTED; CORONAVIRUS HKU1-RESP PCR DETECTED; CORONAVIRUS NL63-RESP PCR NOT DETECTED; CORONAVIRUS OC43-RESP PCR NOT DETECTED; HUMAN METAPNEUMOVIRUS NOT DETECTED; INFLUENZA A- RESP PCR PANEL NOT DETECTED; INFLUENZA B - RESP PCR PANEL NOT DETECTED; M. PNEUMONIAE- RESP PCR PANEL NOT DETECTED; PARAINFLUENZA VIRUS 1 NOT DETECTED; PARAINFLUENZA VIRUS 2 NOT DETECTED; PARAINFLUENZA VIRUS 4 NOT DETECTED; RHINOVIRUS/ENTEROVIRUS NOT DETECTED; RSV- RESP PCR PANEL NOT DETECTED; SARS-CoV-2 -RESP PCR PANEL NOT DETECTED
[2024-10-21 03:46] LABS: BILIRUBIN,URINE NEGATIVE (NEGATIVE); GLUCOSE, URINE (UA) NEGATIVE (NEGATIVE); KETONES,URINE (UA) NEGATIVE (NEGATIVE); LEUKOCYTE ESTERASE, URINE NEGATIVE (NEGATIVE); NITRITE,URINE NEGATIVE (NEGATIVE); OCCULT BLOOD,URINE NEGATIVE (NEGATIVE); PROTEIN,URINE NEGATIVE (NEGATIVE); UROBILINOGEN,URINE 0.2 (NORMAL) E.U./dL (NORMAL)
[2024-10-21] MEDS: AZITHROMYCIN INJ 500 MG in SODIUM CHLORIDE 0.9% 250 ML IV STA (03:46)
[2024-10-21] MEDS: cefTRIAXone 1 GM VIAL IVP STA (03:46)
[2024-10-21 03:47] LABS: CLARITY,URINE CLEAR (CLEAR)
[2024-10-21 04:39] LABS: ABG HCO3 32.8 mmol/L (22.0-26.0); ABG OXYGEN SATURATION 99 % (95-98); ABG PCO2 59 mmHg (34-45); ABG PH 7.35 (7.35-7.45); ABG PO2 101 mmHg (83-108); ABG TCO2 34.6 mmol/L (21.0-29.0); ALLEN TEST POSITIVE
[2024-10-21] MEDS: ONDANSETRON 4 MG/2 ML VIAL IVP STA (07:43)
[2024-10-21] MEDS ORDERED: SODIUM CHLORIDE FLUSH 0.9% 10 ML SYRINGE IVP PRN (08:33)
[2024-10-21] MEDS ORDERED: IPRATROPIUM/ALBUTEROL 3 ML NEB INH PRN (08:33)
--- OUTSIDE RECORDS SUMMARY | 2024-10-21 08:38 | EXTERNAL MEDICAL SUMMARY RPT | Continuity of Care Document ---
Author Organization [facility] Address [address] [place] [id number] Phone Problems date description facility 2024-08-08 14:42 Encounter for attention to wade rostomy [facility] 2024-08-11 08:23 Gastrostomy malfunction [facility] Results/Labs test date facility value unit notes Result panel 1 NUCLEATED RED BLOOD CELLS AUTO 2024-10-21 01:36 [facility] 0.0 /100wbc (missing) BASOPHILS # (AUTO) 2024-10-21 01:36 [facility] 0.0 10 3/ul (missing) EOSINOPHILS # (AUTO) 2024-10-21 01:36 [facility] 0.0 10 3/ul (missing) NRBC ABSOLUTE COUNT (AUTO) 2024-10-21 01:36 [facility] 0 .00 x10 3/ul (missing) MONOCYTES # (AUTO) 2024-10-21 01:36 [facility] 0.2 10 3/ul (missing) LYMPHOCYTES # (AUTO) 2024-10-21 01:36 [facility] 0.8 10 3/ul (missing) MEAN PLATELET VOLUME 2024-10-21 01:36 [facility] 10.6 fl (missing) RED CELL DISTRIBUTION WIDTH 2024-10-21 01:36 [facility] 12.4 % (missing) HGB - HEMOGLOBIN 2024-10-21 01:36 [facility] 14.6 g /dl (missing) PLT - PLATELET COUNT 2024-10-21 01:36 [facility] 201 10 3/ul (missing) MEAN CORPUSCULAR HEMOGLOBIN 2024-10-21 01:36 [facility] 32.4 pg (missing) MEAN CORPUSCULAR HGB CONC 2024-10-21 01:36 [facility] 33 .3 g/dl (missing) NEUTROPHILS # (AUTO) 2024-10-21 01:36 [facility] 4.2 10 3/ul (missing) RED BLOOD COUNT 2024-10-21 01:36 [facility] 4.51 10 6/ul (missing) HCT - HEMATOCRIT 2024-10-21 01:36 [facility] 43.9 % (missing) WHITE BLOOD COUNT 2024-10-21 01:36 [facility] 5.2 x10 3/ul (missing) MEAN CORPUSCULAR VOLUME 2024-10-21 01:36 [facility] 97.3 fl (missing) Result panel 2 CORONAVIRUS HKU1-RESP PCR 2024-10-21 02:00 [facility] DETECTED (missing) Coronavirus HKU1 detected by the mySkine RP2.1 Panel, a multiplexed nucleic acid test intended for the simultaneous qualitative detection and differentiation of nucleic acids from multiple viral and bacterial respiratory organisms. SARS-CoV-2 -RESP PCR PANEL 2024-10-21 02:00 [facility] NOT DETECTED (missing) A negative test result for this test indicates that SARS-CoV-2 RNA was not present in the specimen above the limit of detection. Testing performed on the Bio[employer] Heal[facility] RP2.1 Panel, a multiplexed nucleic acid repiratory panel. Negative results do not preclude infection with SARS-CoV-2 virus and should not be the sole basis of a patient management decision. In some patients repeat testing at various time points may be necessary for virus detection. False-negative results may arise from improper sample collection, degradation of viral RNA during shipping or storage, the presence of PCR inhibitors, and/or mutation in the SARS-CoV-2 virus. INFLUENZA A- RESP PCR PANEL 2024-10-21 02: [facility] NOT DETECTED (missing) Influenza A including subtypes H1, H3, and H1-2009 not detected by the BioFire RP2.1 Panel, a multiplexed nucleic acid test intended for the simultaneous qualitative detection and differentiation of nucleic acids from multiple viral and bacterial respiratory organisms. B. PARAPERTUSSIS- RESP PCR RIVAS 2024-10-21 02:00 [facility] NOT DETECTED (missing) Negative results for this organism do not preclude infection with this organism and may require additional laboratory testing (e.g., bacterial and viral culture, immunofluorescence, and radiography) when evaluating a patient with possible respiratory tract infection. B. PERTUSSIS- RESP PCR PANEL 2024-10-21 02:00 [facility] NOT DETECTED (missing) Negative results for this organism do not preclude infection with this organism and may require additional laboratory testing (e.g., bacterial and viral culture, immunofluorescence, and radiography) when evaluating a patient with possible respiratory tract infection. C. PNEUMONIAE- RESP PCR PANEL 2024-10-21 02:00 [facility] NOT DETECTED (missing) Negative results for this organism do not preclude infection with this organism and may require additional laboratory testing (e.g., bacterial and viral culture, immunofluorescence, and radiography) when evaluating a patient with possible respiratory tract infection. M. PNEUMONIAE- RESP PCR PANEL 2024-10-21 02:00 [facility] NOT DETECTED (missing) Negative results for this organism do not preclude infection with this organism and may require additional laboratory testing (e.g., bacterial and viral culture, immunofluorescence, and radiography) when evaluating a patient with possible respiratory tract infection. CORONAVIRUS 229E-RESP PCR 2024-10-21 02:00 [facility] NOT DETECTED (missing) Negative results in the setting ofa respiratory illness may be due to infection with pathogens not detected by this test, or lower respiratory tract infection that may not be detected by nasopharyngeal specimen. CORONAVIRUS [id number] PCR 2024-10-21 02:00 [facility] NOT DETECTED (missing) Negative results in the setting ofa respiratory illness may be due to infection with pathogens not detected by this test, or lower respiratory tract infection that may not be detected by nasopharyngeal specimen. CORONAVIRUS [id number] PCR 2024-10-21 02:00 [facility] NOT DETECTED (missing) Negative results in the setting ofa respiratory illness may be due to infection with pathogens not detected by this test, or lower respiratory tract infection that may not be detected by nasopharyngeal specimen. HUMAN METAPNEUMOVIRUS 2024-10-21 02:00 [facility] NOT DETECTED (missing) Negative results in the setting ofa respiratory illness may be due to infection with pathogens not detected by this test, or lower respiratory tract infection that may not be detected by nasopharyngeal specimen. INFLUENZA B - RESP PCR PANEL 2024-10-21 02:00 [facility] NOT DETECTED (missing) Negative results in the setting ofa respiratory illness may be due to infection with pathogens not detected by this test, or lower respiratory tract infection that may not be detected by nasopharyngeal specimen. PARAINFLUENZA VIRUS 1 2024-10-21 02:00 [facility] NOT DETECTED (missing) Negative results in the setting ofa respiratory illness may be due to infection with pathogens not detected by this test, or lower respiratory tract infection that may not be detected by nasopharyngeal specimen. PARAINFLUENZA VIRUS 2 2024-10-21 02:00 [facility] NOT DETECTED (missing) Negative results in the setting ofa respiratory illness may be due to infection with pathogens not detected by this test, or lower respiratory tract infection that may not be detected by nasopharyngeal specimen. PARAINFLUENZA VIRUS 3 2024-10-21 02:00 [facility] NOT DETECTED (missing) Negative results in the setting ofa respiratory illness may be due to infection with pathogens not detected by this test, or lower respiratory tract infection that may not be detected by nasopharyngeal specimen. PARAINFLUENZA VIRUS 4 2024-10-21 02:00 [facility] NOT DETECTED (missing) Negative results in the setting ofa respiratory illness may be due to infection with pathogens not detected by this test, or lower respiratory tract infection that may not be detected by nasopharyngeal specimen. RHINOVIRUS/ENTEROVI VESTA 2024-10-21 02:00 [facility] NOT DETECTED (missing) Negative results in the setting ofa respiratory illness may be due to infection with pathogens not detected by this test, or lower respiratory tract infection that may not be detected by nasopharyngeal specimen. RSV- RESP PCR PANEL 2024-10-21 02:00 [facility] NOT DETECTED (missing) Negative results in the setting ofa respiratory illness may be due to infection with pathogens not detected by this test, or lower respiratory tract infection that may not be detected by nasopharyngeal specimen. ADENOVIRUS - RESP PCR PANEL 2024-10-21 02:00 [facility] NOT DETECTED (missing) Y Negative results in the setting ofa respiratory illness may be due to infection with pathogens not detected by this test, or lower respiratory tract infection that may not be detected by nasopharyngeal specimen. Result panel 3 BILIRUBIN,TOTAL 2024-10-21 02:06 [facility] 0.4 mg /dl As of January 2023 testing method has changed, this may include reference ranges. CREATININE 2024-10-21 02:06 [facility] 0.6 mg/dl As of January 2023 testing method has changed, this may include reference ranges. LACTIC ACID, VENOUS 2024-10-21 02:06 [facility] 1.3 mmol/l N As of January 2023 testing method has changed, this may include reference ranges. ALBUMIN/GLOBULIN RATIO 2024-10-21 02:06 [facility] 1.5 (missing) (missing) GFR - MDRD 2024-10-21 02:06 [facility] 103 (maty dela cruz) Social History date description facility
[2024-10-21] MEDS: methylPREDNISolone SUCCINATE 40 MG/ML VIAL IVP SCH (09:13)
[2024-10-21] MEDS: cefTRIAXone 1 GM VIAL IVP SCH (09:13)
[2024-10-21] MEDS: SODIUM CHLORIDE FLUSH 0.9% 10 ML SYRINGE IVP SCH (09:14)
--- NOTE | 2024-10-21 09:57 | HISTORY & PHYSICAL EXAMINATION ---
Chief Complaint Chief Complaint Chief Complaint: Shortness of breath History of Present Illness Admitted From Admitted From:: Home History Obtained From Records Reviewed: EMR History obtained from: Patient Exam Limitations: Dysphonia History of Present Illness HPI Comment/Other: Patient is a 59-year-old female with a history of muscular dystrophy, unspecified which type, who presented for worsening shortness of breath. She states it has been going on for about 3 days at home, but has continued to worsen. With her muscular dystrophy, it is very hard for her to initiate her cough, and she feels as if she is unable to bring up the sputum. She has no fevers or chills. In the emergency room, she was hypotensive with blood pressure as low as 109/53, her oxygen saturation was 94% on 2 L, her respiratory rate was 22, she was afebrile, with a pulse of 89. Chest x-ray was done which showed interstitial thickening infrahilar alveolar opacities. She was started on Rocephin and azithromycin. The emergency room did speak with pulmonology at [facility], and they recommended a ABG which showed some mild CO2 retention, for which they recommended BiPAP use intermittently. They stated that she was okay to stay here. She was transferred to the intensive care unit, and during the course of the day, her respiratory status has continued to worsen. She is getting more tachypneic, and has had increased respiratory secretions which she is unable to clear. She is saturating 90% on the 2 L at this time. She appears very weak and fatigued. We do not have a CoughAssist device here to assist with helping clear the secretions. I reached out to [facility] once again, and spoke with Dr. Keyana Cotter, who graciously accepted transfer to their intensive care unit for closer monitoring. Meds/Allgy Home Medications Ambulatory Orders Medication Instructions Recorded Confirmed omeprazole magnesium 10 mg oral 20 mg ORAL DAILY 04/22/21 10/21/24 suspension,delayed release (Prilosec) tramadol 50 mg tablet 50 mg PO Q6H PRN pain #10 tabs 08/26/23 10/21/24 ondansetron 4 mg disintegrating 4 mg translingual Q6H PRN Nausea / 09/19/23 10/21/24 tablet Vomiting #10 tabs dronabinol 2.5 mg capsule 2.5 mg PO BIDAC #20 caps 10/03/23 10/21/24 nitrofurantoin 1 cap PO BID #10 caps 12/13/23 10/21/24 monohydrate/macrocrystals 100 mg capsule hydrocodone 5 mg-acetaminophen 325 1 - 2 tab PO Q6H PRN Pain #6 tabs 12/22/23 10/21/24 mg tablet oxycodone-acetaminophen 10 mg-325 1 ea PO Q4H PRN Pain #10 tabs 03/24/24 10/21/24 mg tablet (Percocet) oxycodone-acetaminophen 5 mg-325 1 tab PO Q8H PRN pain #7 tabs 04/29/24 10/21/24 mg tablet Allergies Allergies Allergy/AdvReac Type Severity Reaction Status Date / Time No Known Drug Allergies Allergy Verified 08/03/24 18:43 PFSH Active Problems All Active Problems (Updated 10/21/24 @ 14:50 by Alex Ayon MD) Gastrostomy tube dependent (Acute) Muscular dystrophy (Acute) Neuromuscular respiratory weakness (Acute) Acute hypoxic respiratory failure (Acute) Respiratory arrest (Acute) Respiratory failure (Acute) Pneumonia (Acute) Medical History Medical History (Updated 10/21/24 @ 14:50 by Alex Ayon MD) History of pacemaker Surgical History Surgical History (Updated 08/03/24 @ 19:06 by Mary Sadler, RN, BSN) Hx of section Social History Social History Smoking Status: Never smoker Do you dip or chew tobacco?: No Relationship: Level: Assisted Home Mobility Equipment: Walker and Wheeled walker Do you feel safe in your home environment?: Yes Suffered physical, verbal, emotional, or financial abuse?: No History of Abuse: No Are you sexually active?: No POLST Patient has POLST: No Review of Systems Constitutional Reports: Fatigue, Chills, Malaise, Weakness and Poor appetite; Denies: Fever or Night sweats Eyes Denies: Pain, Irritation, Amaurosis, Blurry vision or Floaters Ears, nose, mouth, and throat Denies: Ear pain, Ear discharge, Hearing loss, Hearing aids, Change in hearing, Neck pain or Throat swelling Cardiovascular Reports: shortness of breath with exertion; Denies: Irregular heart rate, chest pain, palpitations, edema, swelling of feet/ankles or Syncope Respiratory Reports: Shortness of breath, Cough, Sputum production and Change in phlegm color; Denies: Wheezing, Apnea or Snoring Gastrointestinal Denies: Abdominal pain, Abdominal distention, Nausea, Vomiting, Poor appetite or Bile emesis Genitourinary Denies: Painful urination, Urinary frequency, Urinary urgency, Nocturia or Urinary incontinence Musculoskeletal Denies: Back pain, Neck pain, Extremity pain or Extremity swelling Integumentary/Breast Denies: Rash, Itching, Dryness, Redness, Skin pain or Skin tenderness Neurological Reports: Headache and General weakness; Denies: Focal weakness, Weakness in extremities or Numbness in extremities Psychiatric Denies: Depression, Anxiety, Mood swings, Panic attacks or Change in sleep pattern Endocrine Reports: Fatigue; Denies: Excessive urination Hematologic/Lymphatic Denies: Anemia, Easy bruising or Petechiae Allergic/Immunologic Denies: Hives, Throat swelling, Tongue swelling, Facial swelling or Wheezing Prior Level of Functionality: Indpendent of ADLs. Exam Exam Vital Signs: Vital Signs x48h Temp Pulse Pulse Resp BP Pulse Ox O2 Flow Rate 10/21/24 16:00 98.6 F 76 15 102/57 L 96 2 10/21/24 15:50 2 10/21/24 15:38 74 10/21/24 15:00 86 22 101/63 94 2 10/21/24 14:30 103/71 10/21/24 14:00 71 19 77/47 L 98 2 10/21/24 13:00 81 19 102/62 91 L 2 10/21/24 12:00 99.1 F 93 32 H 110/62 96 2 10/21/24 11:00 90 17 98/53 L 96 2 10/21/24 10:15 88 14 100/63 92 2 10/21/24 09:28 98.1 F 94 21 93/56 L 98 2 10/21/24 09:00 2 Constitutional abnormal general appearance (lethargic) and (frail appearing), distress noted (mild) and (respiratory), abnormal body habitus (thin) and alert HENMT normocephalic and head/scalp atraumatic Eyes PERRL and EOMs intact bilaterally Neck/C-Spine trachea midline Lymph no lymphadenopathy noted Chest inspection of chest normal and palpation of chest normal Respiratory breath sounds equal bilaterally, normal respiratory effort, rales noted (throughout) and no use of accessory muscles Cardiovascular normal heart rate noted, regular rhythm noted, no gallop and no rub Gastrointestinal abdomen normal to inspection and no masses G tube in place with no erythema or drainage around site Extremities normal to inspection, normal to palpation, no tenderness and full ROM Neurology no movement abnormality noted, no focal motor deficit noted and no sensory deficits noted Psychiatry mental status grossly normal, oriented x3, thought process normal and cooperative Skin skin color normal, no rash and no lesions Conclusion/Plan Problem List (1) Acute hypoxic respiratory failure: Plan: Patient requiring 2 L oxygen to maintain saturations. Continue Rocephin azithromycin for now. Patient has had multiple secretions, and she is not able to clear it due to her underlying muscular dystrophy. We are trialing percussive therapy as well as deep suctioning without much relief. Patient would benefit from a cough assist device, and closer monitoring with a wind energy engineer. Spoke with Mehdi Maxwell, except transfer to ICU for closer monitoring. (2) Neuromuscular respiratory weakness: Plan: See above. Patient would benefit from CoughAssist device. (3) Pneumonia: Plan: Continue Rocephin and azithromycin. Qualifiers: Laterality: left Lung location: lower lobe of lung Pneumonia type: due to unspecified organism Qualified Code(s): J18.9 - Pneumonia, unspecified organism (4) Muscular dystrophy: Plan: Patient with a long history of muscular dystrophy which is causing respiratory weakness in setting of this acute infection, and inability to clear secretions. (5) History of pacemaker: Plan: Pacemaker in place, functioning appropriately. (6) Gastrostomy tube dependent: Plan: G-tube in place, continue tube feeds. Lab Results Lab results reviewed: Yes 10/21/24 01:36 10/21/24 02:06 Diagnostic Imaging Results Diagnostic Imaging Results: positive Final report reviewed EKG Results EKG Interpreted Independently: Yes
[2024-10-21] MEDS: ONDANSETRON 4 MG/2 ML VIAL IVP PRN (10:49)
--- NOTE | 2024-10-21 13:00 | PHARMACY PROGRESS NOTE ---
Best Possible Medication History Admit Date and Time: 10/21/24 [id number] Home Medications Medication Instructions Recorded Confirmed Type omeprazole magnesium 10 mg oral 20 mg ORAL DAILY 04/22/21 10/21/24 History suspension,delayed release (Prilosec) tramadol 50 mg tablet 50 mg PO Q6H PRN pain #10 tabs 08/26/23 10/21/24 Rx ondansetron 4 mg disintegrating 4 mg translingual Q6H PRN Nausea / 09/19/23 10/21/24 Rx tablet Vomiting #10 tabs dronabinol 2.5 mg capsule 2.5 mg PO BIDAC #20 caps 10/03/23 10/21/24 Rx nitrofurantoin 1 cap PO BID #10 caps 12/13/23 10/21/24 Rx monohydrate/macrocrystals 100 mg capsule hydrocodone 5 mg-acetaminophen 325 1 - 2 tab PO Q6H PRN Pain #6 tabs 12/22/23 10/21/24 Rx mg tablet oxycodone-acetaminophen 10 mg-325 1 ea PO Q4H PRN Pain #10 tabs 03/24/24 10/21/24 Rx mg tablet (Percocet) oxycodone-acetaminophen 5 mg-325 1 tab PO Q8H PRN pain #7 tabs 04/29/24 10/21/24 Rx mg tablet Processed by: Pharmacy Medications reviewed in ED?: No Medication History completed: Yes Patient Interview: Completed Secondary Source(s): Insurance records [facility] Statement: Per [facility] interview with patient and [employer] insurance records review. As the person ultimately responsible for medication therapy, providers are able to order a medication from an existing home medication list in [facility] via the "Reconcile Routine" prior to Confirmation of that medication by direct support worker. Such practice is discouraged except when the physician, in their clinical judgment, deems that a medical need exists for a medication without regard to previous use.
--- NOTE | 2024-10-21 14:24 | Discharge Summary ---
"Discharge Summary Admit Date: 10/21/24 Discharge Date: 10/21/24 Discharging Provider: Dr. Alex Ayon Code Status: Attempt Resuscitation Discharge Facility Name: Located [facility] DIAGNOSES Admission Diagnoses: Acute hypoxic respiratory failure Neuromuscular respiratory weakness Pneumonia Muscular dystrophy Gastrostomy tube dependent Discharge Diagnoses with Status of Each Condition: Acute hypoxic respiratory failure Neuromuscular respiratory weakness Pneumonia Muscular dystrophy Gastrostomy tube dependent HPI History of Present Illness: Patient is a 59-year-old female with a history of muscular dystrophy, unspecified which type, who presented for worsening shortness of breath. She states it has been going on for about 3 days at home, but has continued to worsen. With her muscular dystrophy, it is very hard for her to initiate her cough, and she feels as if she is unable to bring up the sputum. She has no fevers or chills. In the emergency room, she was hypotensive with blood pressure as low as 109/53, her oxygen saturation was 94% on 2 L, her respiratory rate was 22, she was afebrile, with a pulse of 89. Chest x-ray was done which showed interstitial thickening infrahilar alveolar opacities. She was started on Rocephin and azithromycin. The emergency room did speak with pulmonology at [facility], and they recommended a ABG which showed some mild CO2 retention, for which they recommended BiPAP use intermittently. They stated that she was okay to stay here. She was transferred to the intensive care unit, and during the course of the day, her respiratory status has continued to worsen. She is getting more tachypneic, and has had increased respiratory secretions which she is unable to clear. She is saturating 90% on the 2 L at this time. She appears very weak and fatigued. We do not have a CoughAssist device here to assist with helping clear the secretions. I reached out to [facility] once again, and spoke with Dr. Keyana Cotter, who graciously accepted transfer to their intensive care unit for closer monitoring. CONSULTS | PROCEDURES Consultations: RT, Pulmonology at [facility] Procedures: Chest x-ray. HOSPITAL COURSE Hospital Course: See HPI above. ALLERGIES Allergies Allergy/AdvReac Type Severity Reaction Status Date / Time No Known Drug Allergies Allergy Verified 08/03/24 18:43 MEDICATIONS Ambulatory Orders Medication Instructions Recorded Confirmed omeprazole magnesium 10 mg oral 20 mg ORAL DAILY 04/22/21 10/21/24 suspension,delayed release (Prilosec) tramadol 50 mg tablet 50 mg PO Q6H PRN pain #10 tabs 08/26/23 10/21/24 ondansetron 4 mg disintegrating 4 mg translingual Q6H PRN Nausea / 09/19/23 10/21/24 tablet Vomiting #10 tabs dronabinol 2.5 mg capsule 2.5 mg PO BIDAC #20 caps 10/03/23 10/21/24 nitrofurantoin 1 cap PO BID #10 caps 12/13/23 10/21/24 monohydrate/macrocrystals 100 mg capsule hydrocodone 5 mg-acetaminophen 325 1 - 2 tab PO Q6H PRN Pain #6 tabs 12/22/23 10/21/24 mg tablet oxycodone-acetaminophen 10 mg-325 1 ea PO Q4H PRN Pain #10 tabs 03/24/24 10/21/24 mg tablet (Percocet) oxycodone-acetaminophen 5 mg-325 1 tab PO Q8H PRN pain #7 tabs 04/29/24 10/21/24 mg tablet PHYSICAL EXAM AT DISCHARGE Vital Signs: Vital Signs x48h Temp Pulse Pulse Resp BP Pulse Ox O2 Flow Rate 10/21/24 16:00 98.6 F 76 15 102/57 L 96 2 10/21/24 15:50 2 10/21/24 15:38 74 10/21/24 15:00 86 22 101/63 94 2 10/21/24 14:30 103/71 10/21/24 14:00 71 19 77/47 L 98 2 10/21/24 13:00 81 19 102/62 91 L 2 10/21/24 12:00 99.1 F 93 32 H 110/62 96 2 10/21/24 11:00 90 17 98/53 L 96 2 10/21/24 10:15 88 14 100/63 92 2 10/21/24 09:28 98.1 F 94 21 93/56 L 98 2 10/21/24 09:00 2 General Appearance: positive Alert, Mild distress and Lethargic Eyes Bilateral: positive Normal inspection, PERRL and EOMI ENT: positive ENT inspection nml, Pharynx nml and No signs of dehydration Neck: positive Nml inspection, Thyroid nml and No JVD Respiratory: positive Chest non-tender, No respiratory distress, Breath sounds nml and Rales (Diffuse) Cardiovascular: positive Regular rate & rhythm, No murmur and No gallop; negative Tachycardia or Bradycardia Peripheral Pulses: positive 2+ Abdomen: positive Non-tender, No organomegaly, Nml bowel sounds and No distention Back: positive Nml inspection; negative CVA tenderness (R) or CVA tenderness (L) Skin: positive Color nml, No rash, Warm and Dry Extremities: positive Non-tender, Full ROM, Nml appearance and No pedal edema Neurologic/Psychiatric: positive Oriented x3 and Mood/affect nml LABS 10/21/24 01:36 10/21/24 02:06 DIAGNOSTIC IMAGING Diagnostic Imaging Results: Final report reviewed FOLLOW UP Follow Up: Transfer to [facility]. TIME SPENT Time Spent in Discharge (Minutes): 35 Discharge Plan Discharge Patient Disposition: 02 Transfer Acute Care Hosp Condition: Critical Prescriptions: Continued Prilosec 10 MG susp,delayed release for recon 20 mg ORAL DAILY tramadol 50 MG tablet 50 mg PO Q6H PRN (Reason: pain ) Qty: 10 0RF ondansetron 4 MG tablet,disintegrating 4 mg translingual Q6H PRN (Reason: Nausea / Vomiting) Qty: 10 0RF dronabinol 2.5 MG capsule 2.5 mg PO BIDAC Qty: 20 0RF Rx Instructions: Take on pill in morning and one pill in evening to help with appetite nitrofurantoin monohyd/m-cryst 100 MG capsule 1 cap PO BID Qty: 10 0RF hydrocodone-acetaminophen 1 TAB tablet 1 - 2 tab PO Q6H PRN (Reason: Pain) Qty: 6 0RF Rx Instructions: Take 1-2 tablets every 6 hours as needed oxycodone-acetaminophen [Percocet] 1 EACH tablet 1 ea PO Q4H PRN (Reason: Pain) Qty: 10 0RF Rx Instructions: Take half a tablet to 1 tablet every 4-6 hours as needed for pain. oxycodone-acetaminophen 5-325 mg tablet 1 tab PO Q8H PRN (Reason: pain) Qty: 7 0RF Activity Restrictions: Activity as Tolerated Diet: Regular Print Language: Indonesian Stand Alone Forms: PCP List"
[2024-10-21] MEDS: guaiFENesin 600 MG TABLET PO SCH (14:41)
[2024-10-21 16:09] VITALS: TEMP 98.6; O2SAT 96
[2024-10-21 17:01] VITALS: BP 97/69
[2024-10-21] MEDS ORDERED: AZITHROMYCIN INJ 500 MG in SODIUM CHLORIDE 0.9% 250 ML IV SCH (21:00)
== END 2024-10-21 17:15 | disposition short-term general hospital (02) | DRG 189 ==
LOC: ED 00:04 → ICU 08:31
PROVIDERS: ADMIT Internal Medicine; ATTEND Internal Medicine